=== PATIENT | male | born 1945 | race Caucasian/White ===

== ENCOUNTER 2020-07-08 12:07 | Emergency (ER) | payer MEDICARE ==
[2020-07-08] MEDS ORDERED: Sodium Chloride 0.9% 2.5 ML Syringe FLUSH PRN (12:14)
[2020-07-08] MEDS ORDERED: Sodium Chloride 0.9% 10 ML Syringe FLUSH PRN (12:14)
--- NOTE | 2020-07-08 12:16 | EDM.PDOC ---
<Jase Winston - Last Filed: 07/08/20 15:31> ED HPI GENERAL MEDICAL PROBLEM - General Chief Complaint: Respiratory Problem Stated Complaint: EMS ARRIVAL Time Seen by Provider: 07/08/20 12:10 - Related Data Allergies Allergy/AdvReac Type Severity Reaction Status Date / Time metformin Allergy Cannot Verified 07/08/20 12:23 Remember Sulfa (Sulfonamide Allergy Cannot Verified 07/08/20 12:23 Antibiotics) Remember Home Meds: Home Meds Albuterol Sulfate [Proair Respiclick] 90 mcg INH ASDIRECTED 07/08/20 [History] DULoxetine HCl [Duloxetine HCl] 20 mg PO TID 07/08/20 [History] Ferrous Sulfate 325 mg PO DAILY 07/08/20 [History] Fludrocortisone Acetate 0.1 mg PO DAILY 07/08/20 [History] Fluticasone Propion/Salmeterol [Fluticasone-Salmeterol 250-50] 1 puff INH Q12H 07/08/20 [History] Insulin Aspart [Insulin Aspart Flexpen] 8 units INJECT BID 07/08/20 [History] Insulin Glarg,Human.Rec.Analog [Lantus Solostar] 50 units INJECT ACBREAKFAST 07/08/20 [History] Montelukast [Singulair] 10 mg PO BEDTIME 07/08/20 [History] Pantoprazole [ProTONIX] 40 mg PO DAILY 07/08/20 [History] Pregabalin [Lyrica] 50 mg PO BID 07/08/20 [History] Pyridostigmine [place] 60 mg PO DAILY 07/08/20 [History] Tamsulosin HCl [Flomax] 0.4 mg PO DAILY 07/08/20 [History] Tiotropium [Spiriva HandiHaler] 2.5 mcg INH DAILY 07/08/20 [History] Warfarin [Coumadin] 2.5 mg PO DAILY 07/08/20 [History] predniSONE [Prednisone] 20 mg PO DAILY 07/08/20 [History] #1 Interpretation EKG Interpretation Comments: EKG: Normal sinus rhythm heart rate of [address]-T wave abnormalities Normal axis No evidence of ST elevation [place] As interpreted by ER physician: Tish Departure - Departure Disposition: Home, Self-Care 01 Clinical Impression: COVID-19 - Discharge Information Instructions: COVID-19 Referrals: Elana Yoder MD [Primary Care Provider] - Forms: ED Department Discharge Additional Instructions: The following information is given to patients seen in the emergency department who are being discharged to home. This information is to outline your options for follow-up care. We provide all patients seen in our emergency department with a follow-up referral. The need for follow-up, as well as the timing and circumstances, are variable depending upon the specifics of your emergency department visit. If you don't have a primary care physician on staff, we will provide you with a referral. We always advise you to contact your personal physician following an emergency department visit to inform them of the circumstance of the visit and for follow-up with them and/or the need for any referrals to a consulting specialist. The emergency department will also refer you to a specialist when appropriate. This referral assures that you have the opportunity for follow-up care with a specialist. All of these measure are taken in an effort to provide you with optimal care, which includes your follow-up. Under all circumstances we always encourage you to contact your private physician who remains a resource for coordinating your care. When calling for follow-up care, please make the office aware that this follow-up is from your recent emergency room visit. If for any reason you are refused follow-up, please contact the [facility] Emergency Department at and asked to speak to the emergency department charge nurse. [facility] [address] [place] [id number] [address] Thank you for choosing the [facility] emergency department in [place] for your medical needs today. It was a pleasure caring for you. Today you were seen in the emergency department for COVID- 19. 1. Your COVID-19 screening is positive. That means you do have the coronavirus and you are considered contagious. Your vital signs and oxygen saturation are well enough that you were able to monitor your symptoms at home. Continue to monitor for trouble breathing, new confusion or inability to arouse, bluish lips or face or any of the other symptoms we discussed -if this occurs please return to the emergency room. 2. Please self quarantine over the next 10 days. Inform any persons that you have been in contact with since you started becoming symptomatic that you have tested positive; they should be made aware and take the appropriate steps as ne eded. 3. You can take NyQuil during the evening to help get a restful night sleep. May alternate Tylenol and ibuprofen as needed for pain and fever management. 4. The [facility] department will be calling you and following up with you. The [place] [facility] [employer] Hotline phone number , They are open Monday - Monday 7am - 7pm. Follow up with your primary care provider for re-evaluation and re-testing after the 10 day quarantine and discuss when you should be seen. <Morgan Swartz E - Last Filed: 07/08/20 15:57> ED HPI GENERAL MEDICAL PROBLEM - General Source of Information: Reports: Patient History Limitations: Reports: No Limitations - History of Present Illness INITIAL COMMENTS - FREE TEXT/NARRATIVE: HISTORY AND PHYSICAL: History of present illness: Patient is a 74-year-old male who presents to the emergency room via EMS with complaints of fatigue, weakness and shortness of breath. Patient reports he has COPD, asthma and MS. He is a poor historian, unable to tell me how long symptoms have been going on or which medications he takes. Patient denies any fever, chills, headache, change in vision, syncope or near syncope. Denies any chest pain, back pain, abdominal pain, nausea, vomiting, diarrhea, constipation or dysuria. Has not noted any blood in urine or stool. Patient has been eating and drinking appropriately. Review of systems: As per history of present illness and below otherwise all systems reviewed and negative. Past medical history: As per history of present illness and as reviewed below otherwise noncontributory. Surgical history: As per history of present illness and as reviewed below otherwise non contributory. Social history: See social history for further information Family history: As per history of present illness and as reviewed below otherwise noncontributory. Physical exam: General: Well developed and well nourished 74 year old male. Alert and orientated x 3. Mildly ill appearing but in no acute distress. Vital signs are stable and have been reviewed by me. Nursing notes were reviewed. Attempted to get more health history from [facility] (poor historian). HEENT: Atraumatic, normocephalic, pupils equal and reactive bilaterally, negative for conjunctival pallor or scleral icterus, mucous membranes dry, TMs normal bilaterally, throat clear, neck supple, nontender, trachea midline. No drooling or trismus noted. No meningeal signs. No hot potato voice noted. Lungs: Clear to auscultation, breath sounds equal bilaterally, chest nontender. Normal work of breathing, no accessory muscles used. Heart: S1S2, regular rate and rhythm without overt murmur Abdomen: Soft, nondistended, nontender. Negative for masses or hepatosplenomegaly. Negative for costovertebral tenderness. Pelvis: Stable nontender. Skin: Intact, warm, dry. No lesions or rashes noted. Hematologic: No petechiae or purpra. Mucosa appropriate color and normal nail bed color and refill. Extremities: Atraumatic, moves all extremities per self without difficulty or deficits, negative for cords or calf pain. No lower extremity edema noted. Neurovascular unremarkable. Neuro: Awake, alert, oriented. Cranial nerves II through XII unremarkable. Cerebellum unremarkable. Motor and sensory unremarkable throughout. Exam nonfocal. Psychiatric: Mood and affect are appropriate. Normal thought process. Answering questions appropriately. Notes: Cardiomegaly without further evidence of heart failure or other acute a bnormality. Lab work is unremarkable with the exception of testing positive for COVID-19. I did offer admission due to his comorbidities. He adamantly declines wanting to be admitted stating he needs to go home. He is vitally stable. I have spoken with the patient/caregiver and discussed today's findings, in addition to providing specific details for plan of care. The patient is stable for discharge, counseling was provided and we discussed in great detail signs and symptoms that would prompt them to return to the Emergency Department. Medication, follow up and supportive care measures were reviewed and discussed. Voices understanding and is agreeable to plan of care. Denies any further questions or concerns at this time. Diagnostics: CBC, CMP, D.Dimer, EKG, Troponin, CXR, BNP Therapeutics: NS Prescription: None Impression: COVID-19 Plan: 1. Your COVID-19 screening is positive. That means you do have the coronavirus and you are considered contagious. Your vital signs and oxygen saturation are well enough that you were able to monitor your symptoms at home. Continue to monitor for trouble breathing, new confusion or inability to arouse, bluish lips or face or any of the other symptoms we discussed -if this occurs please return to the emergency room. 2. Please self quarantine over the next 10 days. Inform any persons that you have been in contact with since you started becoming symptomatic that you have tested positive; they should be made aware and take the appropriate steps as needed. 3. You can take NyQuil during the evening to help get a restful night sleep. May alternate Tylenol and ibuprofen as needed for pain and fever management. 4. The [facility] department will be calling you and following up with you. The [place] COVID 19 Hotline phone number , They are open Monday - Monday 7am - 7pm. Follow up with your primary care provider for re-evaluation and re-testing after the 10 day quarantine and discuss when you should be seen. Definitive disposition and diagnosis as appropriate pending reevaluation and review of above. Entire Body Pain Score (Numeric/FACES): 8 ED ROS GENERAL - Review of Systems Review Of Systems: Comprehensive ROS is negative, except as noted in HPI. ED EXAM, GENERAL - Physical Exam Exam: See Below (See dictation) Course - Vital Signs Last Recorded V/S: Last Vital Signs Temp 96.8 F L 07/08/20 12:15 Pulse 67 07/08/20 12:15 Resp 17 07/08/20 12:15 BP 136/84 07/08/20 12:15 Pulse Ox 95 07/08/20 12:15 - Orders/Labs/Meds Orders: Active Orders 24 hr Category Date Time Status EKG Documentation Completion [RC] STAT Care 07/08/20 12:14 Active B-TYPE NATRIURETIC PEPTIDE,BNP [CHEM] Stat Lab 07/08/20 13:09 Received Sodium Chloride 0.9% [Saline Flush] Med 07/08/20 12:14 Active 10 ml FLUSH ASDIRECTED PRN Sodium Chloride 0.9% [Saline Flush] Med 07/08/20 12:14 Active 2.5 ml FLUSH ASDIRECTED PRN Saline Lock Insert [OM.PC] Stat Oth 07/08/20 12:14 Ordered Medication Orders Sodium Chloride (Saline Flush) 10 ml FLUSH ASDIRECTED PRN PRN Reason: Keep Vein Open Sodium Chloride (Saline Flush) 2.5 ml FLUSH ASDIRECTED PRN PRN Reason: Keep Vein Open Labs: Laboratory Tests 07/08/20 07/08/20 07/08/20 Range/Units 13:09 13:09 13:09 WBC 5.32 (4.0-11.0) K/uL RBC 5.42 (4.50-5.90) M/uL Hgb 13.4 (13.0-17.0) g/dL Hct 43.7 (38.0-50.0) % MCV 80.6 (80.0-98.0) fL MCH 24.7 L (27.0-32.0) pg MCHC 30.7 L (31.0-37.0) g/dL RDW Std Deviation 62.8 H (28.0-62.0) fl RDW Coeff of [place] 21 H (11.0-15.0) % Plt Count 129 L (150-400) K/uL Neut % (Auto) 68.0 (48.0-80.0) % Lymph % (Auto) 23.5 (16.0-40.0) % [place] % (Auto) 6.2 (0.0-15.0) % Eos % (Auto) 2.1 (0.0-7.0) % Baso % (Auto) 0.2 (0.0-1.5) % Neut # (Auto) 3.6 (1.4-5.7) K/uL Lymph # (Auto) 1.3 (0.6-2.4) K/uL [place] # (Auto) 0.3 (0.0-0.8) K/uL Eos # (Auto) 0.1 (0.0-0.7) K/uL Baso # (Auto) 0.0 (0.0-0.1) K/uL Nucleated RBC % 0.9 /100WBC Nucleated RBCs # 0 K/uL INR D-Dimer, Quantitative 0.23 (0.0-0.50) mg/L FEU Lactate (0.20-2.00) mmol/L Sodium 134 L (136-148) mmol/L Potassium 4.1 (3.5-5.1) mmol/L Chloride 101 (98-107) mmol/L Carbon Dioxide 26.9 (21.0-32.0) mmol/L BUN 21 H (7.0-18.0) mg/dL Creatinine 1.1 (0.8-1.3) mg/dL Est Cr Clr Drug Dosing 69.54 mL/min Estimated GFR (MDRD) > 60.0 ml/min Glucose 120 H (74-106) mg/dL Calcium 8.0 L (8.5-10.1) mg/dL Total Bilirubin 0.9 (0.2-1.0) mg/dL AST 30 (15-37) IU/L ALT 19 (14-63) IU/L Alkaline Phosphatase 78 (46-116) U/L Troponin I < 0.050 (0.000-0.056) ng/mL Total Protein 6.2 L (6.4-8.2) g/dL Albumin 2.5 L (3.4-5.0) g/dL Globulin 3.7 (2.6-4.0) g/dL Albumin/Globulin Ratio 0.7 L (0.9-1.6) SARS-CoV-2 RNA (QUANG) (NEGATIVE) 07/08/20 07/08/20 07/08/20 Range/Units 13:09 13:09 13:45 WBC (4.0-11.0) K/uL RBC (4.50-5.90) M/uL Hgb (13.0-17.0) g/dL Hct (38.0-50.0) % MCV (80.0-98.0) fL MCH (27.0-32.0) pg MCHC (31.0-37.0) g/dL RDW Std Deviation (28.0-62.0) fl RDW Coeff of [place] (11.0-15.0) % Plt Count (150-400) K/uL Neut % (Auto) (48.0-80.0) % Lymph % (Auto) (16.0-40.0) % [place] % (Auto) (0.0-15.0) % Eos % (Auto) (0.0-7.0) % Baso % (Auto) (0.0-1.5) % Neut # (Auto) (1.4-5.7) K/uL Lymph # (Auto) (0.6-2.4) K/uL [place] # (Auto) (0.0-0.8) K/uL Eos # (Auto) (0.0-0.7) K/uL Baso # (Auto) (0.0-0.1) K/uL Nucleated RBC % /100WBC Nucleated RBCs # K/uL INR 1.80 D-Dimer, Quantitative (0.0-0.50) mg/L FEU Lactate 1.1 (0.20-2.00) mmol/L Sodium (136-148) mmol/L Potassium (3.5-5.1) mmol/L Chloride (98-107) mmol/L Carbon Dioxide (21.0-32.0) mmol/L BUN (7.0-18.0) mg/dL Creatinine (0.8-1.3) mg/dL Est Cr Clr Drug Dosing mL/min Estimated GFR (MDRD) ml/min Glucose (74-106) mg/dL Calcium (8.5-10.1) mg/dL Total Bilirubin (0.2-1.0) mg/dL AST (15-37) IU/L ALT (14-63) IU/L Alkaline Phosphatase (46-116) U/L Troponin I (0.000-0.056) ng/mL Total Protein (6.4-8.2) g/dL Albumin (3.4-5.0) g/dL Globulin (2.6-4.0) g/dL Albumin/Globulin Ratio (0.9-1.6) SARS-CoV-2 RNA (QUANG) POSITIVE H (NEGATIVE) Meds: Medications Generic Name Dose Route Start Last Admin Trade Name Freq PRN Reason Stop Dose Admin Sodium Chloride 10 ml 07/08/20 12:14 Saline Flush FLUSH ASDIRECTED PRN Keep Vein Open Sodium Chloride 2.5 ml 07/08/20 12:14 Saline Flush FLUSH ASDIRECTED PRN Keep Vein Open Departure - Departure Time of Disposition: 14:57 Sepsis Event Note (ED) - Focused Exam Vital Signs: Vital Signs Temp Pulse Resp BP Pulse Ox 07/08/20 12:15 96.8 F L 67 17 136/84 95 - My Orders Last 24 Hours: My Active Orders 07/08/20 12:14 EKG Documentation Completion [RC] STAT Sodium Chloride 0.9% [Saline Flush] 10 ml FLUSH ASDIRECTED PRN Sodium Chloride 0.9% [Saline Flush] 2.5 ml FLUSH ASDIRECTED PRN Saline Lock Insert [OM.PC] Stat 07/08/20 13:09 B-TYPE NATRIURETIC PEPTIDE,BNP [CHEM] Stat - Assessment/Plan Last 24 Hours: My Active Orders 07/08/20 12:14 EKG Documentation Completion [RC] STAT Sodium Chloride 0.9% [Saline Flush] 10 ml FLUSH ASDIRECTED PRN Sodium Chloride 0.9% [Saline Flush] 2.5 ml FLUSH ASDIRECTED PRN Saline Lock Insert [OM.PC] Stat 07/08/20 13:09 B-TYPE NATRIURETIC PEPTIDE,BNP [CHEM] Stat
--- NOTE | 2020-07-08 13:31 | CR ---
INDICATION: Shortness of breath TECHNIQUE: Chest 1 view COMPARISON: None FINDINGS: Cardiovascular and mediastinum: Heart is enlarged. Pulmonary vasculature is normal. Wire less pacemaker device is present. Lungs and pleural spaces: Lungs are clear. No sign of infiltrate or mass. No sign of pleural effusion. No pneumothorax. Bones and soft tissues: No significant findings. IMPRESSION: Cardiomegaly without further evidence of heart failure or other acute abnormality. Dictated by Sven Bueno MD @ Jul 08 2020 1:29PM Signed by Dr. Sven Bueno @ Jul 08 2020 1:30PM
[2020-07-08 13:58] LABS: BLOOD UREA NITROGEN,BUN 21 mg/dL (7.0-18.0); CARBON DIOXIDE,CO2 26.9 mmol/L (21.0-32.0); CHLORIDE,CL 101 mmol/L (98-107); GLUCOSE RANDOM 120 mg/dL (74-106); POTASSIUM,K 4.1 mmol/L (3.5-5.1); SODIUM,NA 134 mmol/L (136-148)
== END 2020-07-08 15:55 | disposition home or self-care (01) ==
LOC: MW.ED 12:07
DX: U07.1 COVID-19 (principal); Z88.8 Allergy status to other drugs, medicaments and biological substances; Z88.2 Allergy status to sulfonamides; Z79.4 Long term (current) use of insulin; Z79.01 Long term (current) use of anticoagulants; Z79.899 Other long term (current) drug therapy
CPT/HCPCS: 36415; 71045; 80053; 83605; 83880; 84484; 85025; 85379; 85610; 93005; 99285; U0002

== ENCOUNTER 2020-07-11 10:56 | Inpatient (IN) | payer MEDICARE, OTHER ==
[2020-07-11] MEDS ORDERED: Sodium Chloride 0.9% 10 ML Syringe FLUSH PRN (11:00)
[2020-07-11] MEDS ORDERED: Sodium Chloride 0.9% 2.5 ML Syringe FLUSH PRN (11:00)
--- NOTE | 2020-07-11 11:14 | EDM.PDOC ---
ED HPI GENERAL MEDICAL PROBLEM - General Chief Complaint: Respiratory Problem Stated Complaint: COVID Time Seen by Provider: 07/11/20 10:57 Source of Information: Reports: Patient, EMS History Limitations: Reports: No Limitations - History of Present Illness INITIAL COMMENTS - FREE TEXT/NARRATIVE: History of present illness: [Patient is 74-year-old male who was diagnosed positive with Covid 3 days ago and he presented by EMS today with body aches, fatigue, shortness of breath. EMS reports that he was 88% on room air. They put him on 4 L of oxygen by nasal cannula to bump him up to the high 90s. He denies chest pain. Denies blurry vision or headache. Denies vomiting and diarrhea. Has history of type 2 diabetes, MS, and other neurological issues that he cannot recall.] Review of systems: As per history of present illness and below otherwise all systems reviewed and negative. Past medical history: As per history of present illness and as reviewed below otherwise noncontributory. Surgical history: As per history of present illness and as reviewed below otherwise noncontributory. Social history: No reported history of drug or alcohol abuse. Family history: As per history of present illness and as reviewed below otherwise noncontributory. Physical exam: General: Awake, alert, no acute distress, A&O X3. HEENT: Atraumatic, normocephalic, pupils reactive, negative for conjunctival pallor or scleral icterus, mask on, neck supple, nontender, trachea midline. Lungs: tachypneic, scattered expiratory wheezes, otherwise Clear to auscultation. Heart: RRR, normal S1S2, no JVD. Abdomen: Soft, nondistended, nontender. Negative for masses or hepatosplenomegaly. Pelvis: Stable nontender. Genitourinary: Deferred. Rectal: Deferred. Extremities: Atraumatic, no edema, Neurovascular unremarkable. Neuro: Motor and sensory grossly intact throughout. Exam nonfocal. Diagnostics: [] Therapeutics: [] Impression: [] Plan: [] Definitive disposition and diagnosis as appropriate pending reevaluation and review of above. - Related Data Allergies Allergy/AdvReac Type Severity Reaction Status Date / Time metformin Allergy Cannot Verified 07/11/20 11:06 Remember Sulfa (Sulfonamide Allergy Cannot Verified 07/11/20 11:06 Antibiotics) Remember Home Meds: Home Meds Albuterol Sulfate [Proair Respiclick] 90 mcg INH ASDIRECTED 07/08/20 [History] DULoxetine HCl [Duloxetine HCl] 20 mg PO TID 07/08/20 [History] Ferrous Sulfate 325 mg PO DAILY 07/08/20 [History] Fludrocortisone Acetate 0.1 mg PO DAILY 07/08/20 [History] Fluticasone Propion/Salmeterol [Fluticasone-Salmeterol 250-50] 1 puff INH Q12H 07/08/20 [History] Insulin Aspart [Insulin Aspart Flexpen] 8 units INJECT BID 07/08/20 [History] Insulin Glarg,Human.Rec.Analog [Lantus Solostar] 50 units INJECT ACBREAKFAST 07/08/20 [History] Montelukast [Singulair] 10 mg PO BEDTIME 07/08/20 [History] Pantoprazole [ProTONIX] 40 mg PO DAILY 07/08/20 [History] Pregabalin [Lyrica] 50 mg PO BID 07/08/20 [History] Pyridostigmine Garretson 120 mg PO Q6HR 07/08/20 [History] Tamsulosin HCl [Flomax] 0.4 mg PO DAILY 07/08/20 [History] Tiotropium [Spiriva HandiHaler] 2.5 mcg INH DAILY 07/08/20 [History] Warfarin [Coumadin] 2.5 mg PO DAILY 07/08/20 [History] predniSONE [Prednisone] 20 mg PO DAILY 07/08/20 [History] Past Medical History - Past Surgical History Other HEENT Surgeries/Procedures: unable to obtain Other Cardiovascular Surgeries/Procedures: unable to obtain Other Respiratory Surgeries/Procedures: unable to obtain Other GI Surgeries/Procedures: unable to obtain Other Male Surgeries/Procedures: unable to obtain Other Endocrine Surgeries/Procedures: unable to obtain Other Neurological Surgeries/Procedures: Unable to obtain Other Musculoskeletal Surgeries/Procedures:: unable to obtain Social & Family History - Caffeine Use Caffeine Use: Reports: None ED ROS GENERAL - Review of Systems Review Of Systems: Comprehensive ROS is negative, except as noted in HPI. ED EXAM, GENERAL - Physical Exam Exam: See Below (see h and p) #1 Interpretation EKG Date: 07/11/20 Time: 11:26 Rhythm: NSR Rate (Beats/Min): 82 [place]: Normal P-Wave: Present QRS: LBBB ST-T: Normal QT: Normal Comparison: No Change (- for comparison) Course - Vital Signs Text/Narrative:: Patient is requiring supplemental oxygen for his hypoxia. He has been stable while on the nasal cannula O2. Remainder of the work-up is reassuring. He is agreeable with plan for admission and further work-up and evaluation. Last Recorded V/S: Last Vital Signs Temp 36.4 C 07/12/20 08:00 Pulse 60 07/12/20 08:00 Resp 20 07/12/20 08:00 BP 180/80 H 07/12/20 08:00 Pulse Ox 97 07/12/20 08:00 - Orders/Labs/Meds Orders: Active Orders 24 hr Category Date Time Status Sodium Chloride 0.9% [Saline Flush] Med 07/11/20 11:00 Active 10 ml FLUSH ASDIRECTED PRN Sodium Chloride 0.9% [Saline Flush] Med 07/11/20 11:00 Active 2.5 ml FLUSH ASDIRECTED PRN Saline Lock Insert [OM.PC] Stat Oth 07/11/20 11:00 Ordered Medication Orders Acetaminophen (Tylenol) 650 mg PO Q4H PRN PRN Reason: Pain (Mild 1-3)/fever Albuterol/Ipratropium (Combivent Respimat) 0 gm INH Q6H [facility] Last Admin: 07/12/20 06:18 Dose: 1 puff Documented by: Admin: 07/11/20 23:43 Dose: 1 puff Documented by: Admin: 07/11/20 17:35 Dose: 1 cartridge Documented by: ALESSANDRO Dexamethasone (Dexamethasone) 6 mg PO DAILY [facility] Last Admin: 07/12/20 10:05 Dose: 6 mg Documented by: GRZEGORZ Dextrose/Water (Dextrose 50% In Water) 50 ml IV ASDIRECTED PRN PRN Reason: Hypoglycemia Enoxaparin Sodium (Lovenox) 40 mg SUBCUT Q24H [facility] Last Admin: 07/11/20 18:12 Dose: 40 mg Documented by: ALYSSA Ferrous Sulfate (Ferrous Sulfate) 325 mg PO DAILY [facility] Last Admin: 07/12/20 10:05 Dose: 325 mg Documented by: GRZEGORZ Fludrocortisone Acetate (Florinef) 0.1 mg PO DAILY [facility] Last Admin: 07/12/20 10:06 Dose: 0.1 mg Documented by: GRZEGORZ Glucagon (Glucagen) 1 mg IM ASDIRECTED PRN PRN Reason: Hypoglycemia Remdesivir 100 mg/ Sodium (Chloride) 100 mls @ 100 mls/hr IV Q24H [facility] Stop: 07/15/20 14:59 Pantoprazole Sodium 40 mg/ (Sodium Chloride) 10 mls @ 300 mls/hr IV DAILY [facility] Last Admin: 07/12/20 10:06 Dose: 300 mls/hr Documented by: Infusion: 07/11/20 18:15 Dose: 300 mls/hr Documented by: Admin: 07/11/20 18:13 Dose: 300 mls/hr Documented by: ALYSSA Insulin Aspart (Novolog) 0 unit SUBCUT TIDAC [facility]; Protocol Last Admin: 07/11/20 18:22 Dose: 8 unit Documented by: ALYSSA Insulin Glargine (Lantus Solostar) 50 units SUBCUT ACBREAKFAST [facility] Montelukast Sodium (Singulair) 10 mg PO BEDTIME [facility] Last Admin: 07/11/20 20:55 Dose: 10 mg Documented by: BELKYS Duloxetine Hcl 20 Mg 1 each PO TID [facility] Pyridostigmine (Garretson 60 Mg) 1 each PO DAILY [facility] Tiotropium [Spiriva Respimat] 2.5 Mcg/Actuation 2 each INH DAILY [facility] Pregabalin (Lyrica) 50 mg PO BID [facility] Last Admin: 07/12/20 10:06 Dose: 50 mg Documented by: Admin: 07/11/20 20:55 Dose: 50 mg Documented by: BELKYS Fluticasone/Salmeterol (Advair Diskus 250-50) 0 puff INH Q12H [facility] Last Admin: 07/11/20 19:32 Dose: Not Given Documented by: ALYSSA Sodium Chloride (Saline Flush) 10 ml FLUSH ASDIRECTED PRN PRN Reason: Keep Vein Open Last Admin: 07/11/20 12:42 Dose: 10 ml Documented by: DEB Sodium Chloride (Saline Flush) 2.5 ml FLUSH ASDIRECTED PRN PRN Reason: Keep Vein Open Last Admin: 07/11/20 12:42 Dose: 2.5 ml Documented by: DEB Tamsulosin HCl (Flomax) 0.4 mg PO DAILY [facility] Last Admin: 07/12/20 10:05 Dose: 0.4 mg Documented by: GRZEGORZ Warfarin Sodium (Coumadin Ask) 1 each PO DAILY@1400 JUANITA Warfarin Sodium (Coumadin) 2.5 mg PO DAILY@1400 ONE Stop: 07/12/20 14:01 Labs: Laboratory Tests 07/11/20 07/11/20 07/11/20 Range/Units 11:05 11:05 11:05 WBC 4.93 (4.0-11.0) K/uL RBC 5.55 (4.50-5.90) M/uL Hgb 13.6 (13.0-17.0) g/dL Hct 44.3 (38.0-50.0) % MCV 79.8 L (80.0-98.0) fL MCH 24.5 L (27.0-32.0) pg MCHC 30.7 L (31.0-37.0) g/dL RDW Std Deviation 60.0 (28.0-62.0) fl RDW Coeff of Feliciano 21 H (11.0-15.0) % Plt Count 162 (150-400) K/uL MPV 10.60 (7.40-12.00) fL Neut % (Auto) 63.1 (48.0-80.0) % Lymph % (Auto) 27.0 (16.0-40.0) % [place] % (Auto) 8.7 (0.0-15.0) % Eos % (Auto) 1.2 (0.0-7.0) % Baso % (Auto) 0.0 (0.0-1.5) % Neut # (Auto) 3.1 (1.4-5.7) K/uL Lymph # (Auto) 1.3 (0.6-2.4) K/uL [place] # (Auto) 0.4 (0.0-0.8) K/uL Eos # (Auto) 0.1 (0.0-0.7) K/uL Baso # (Auto) 0.0 (0.0-0.1) K/uL Nucleated RBC % 0.0 /100WBC Nucleated RBCs # 0 K/uL INR APTT (18.6-31.3) SEC Sodium 135 L (136-148) mmol/L Potassium 3.7 (3.5-5.1) mmol/L Chloride 100 (98-107) mmol/L Carbon Dioxide 27.0 (21.0-32.0) mmol/L BUN 18 (7.0-18.0) mg/dL Creatinine 1.3 (0.8-1.3) mg/dL Est Cr Clr Drug Dosing 58.84 mL/min Estimated GFR (MDRD) 54.1 ml/min Glucose 227 H (74-106) mg/dL Calcium 8.0 L (8.5-10.1) mg/dL Total Bilirubin 1.2 H (0.2-1.0) mg/dL AST 38 H (15-37) IU/L ALT 27 (14-63) IU/L Alkaline Phosphatase 85 (46-116) U/L Troponin I < 0.050 (0.000-0.056) ng/mL B-Natriuretic Peptide 83 (<100) PG/ML Total Protein 6.6 (6.4-8.2) g/dL Albumin 2.5 L (3.4-5.0) g/dL Globulin 4.1 H (2.6-4.0) g/dL Albumin/Globulin Ratio 0.6 L (0.9-1.6) 07/11/20 Range/Units 11:05 WBC (4.0-11.0) K/uL RBC (4.50-5.90) M/uL Hgb (13.0-17.0) g/dL Hct (38.0-50.0) % MCV (80.0-98.0) fL MCH (27.0-32.0) pg MCHC (31.0-37.0) g/dL RDW Std Deviation (28.0-62.0) fl RDW Coeff of Feliciano (11.0-15.0) % Plt Count (150-400) K/uL MPV (7.40-12.00) fL Neut % (Auto) (48.0-80.0) % Lymph % (Auto) (16.0-40.0) % [place] % (Auto) (0.0-15.0) % Eos % (Auto) (0.0-7.0) % Baso % (Auto) (0.0-1.5) % Neut # (Auto) (1.4-5.7) K/uL Lymph # (Auto) (0.6-2.4) K/uL [place] # (Auto) (0.0-0.8) K/uL Eos # (Auto) (0.0-0.7) K/uL Baso # (Auto) (0.0-0.1) K/uL Nucleated RBC % /100WBC Nucleated RBCs # K/uL INR 1.39 APTT 39.5 H (18.6-31.3) SEC Sodium (136-148) mmol/L Potassium (3.5-5.1) mmol/L Chloride (98-107) mmol/L Carbon Dioxide (21.0-32.0) mmol/L BUN (7.0-18.0) mg/dL Creatinine (0.8-1.3) mg/dL Est Cr Clr Drug Dosing mL/min Estimated GFR (MDRD) ml/min Glucose (74-106) mg/dL Calcium (8.5-10.1) mg/dL Total Bilirubin (0.2-1.0) mg/dL AST (15-37) IU/L ALT (14-63) IU/L Alkaline Phosphatase (46-116) U/L Troponin I (0.000-0.056) ng/mL B-Natriuretic Peptide (<100) PG/ML Total Protein (6.4-8.2) g/dL Albumin (3.4-5.0) g/dL Globulin (2.6-4.0) g/dL Albumin/Globulin Ratio (0.9-1.6) Meds: Medications Generic Name Dose Route Start Last Admin Trade Name Freq PRN Reason Stop Dose Admin Acetaminophen 650 mg 07/11/20 15:07 Tylenol PO Q4H PRN Pain (Mild 1-3)/fever Albuterol/Ipratropium 0 gm 07/11/20 18:00 07/12/20 06:18 Combivent Respimat INH 1 puff Q6H JUANITA Administration Dexamethasone 6 mg 07/12/20 09:00 07/12/20 10:05 Dexamethasone PO 6 mg DAILY JUANITA Administration Dextrose/Water 50 ml 07/11/20 15:08 Dextrose 50% In Water IV ASDIRECTED PRN Hypoglycemia Enoxaparin Sodium 40 mg 07/11/20 16:00 07/11/20 18:12 Lovenox SUBCUT 40 mg Q24H JUANITA Administration Ferrous Sulfate 325 mg 07/12/20 09:00 07/12/20 10:05 Ferrous Sulfate PO 325 mg DAILY JUANITA Administration Fludrocortisone Acetate 0.1 mg 07/12/20 09:00 07/12/20 10:06 Florinef PO 0.1 mg DAILY JUANITA Administration Glucagon 1 mg 07/11/20 15:08 Glucagen IM ASDIRECTED PRN Hypoglycemia Remdesivir 100 mg/ Sodium 100 mls @ 100 mls/hr 07/12/20 14:00 Chloride IV 07/15/20 14:59 Q24H JUANITA Pantoprazole Sodium 40 mg/ 10 mls @ 300 mls/hr 07/11/20 16:00 07/12/20 10:06 Sodium Chloride IV 300 mls/hr DAILY JUANITA Administration Insulin Aspart 0 unit 07/11/20 17:00 07/11/20 18:22 Novolog SUBCUT 8 unit TIDAC [facility] Administration Protocol Insulin Glargine 50 units 07/12/20 07:30 Lantus Solostar SUBCUT ACBREAKFAST [facility] Montelukast Sodium 10 mg 07/11/20 21:00 07/11/20 20:55 Singulair PO 10 mg BEDTIME JUANITA Administration Duloxetine Hcl 20 Mg 1 each 07/11/20 22:00 PO TID [facility] Pyridostigmine 1 each 07/12/20 09:00 Garretson 60 Mg PO DAILY [facility] Tiotropium [Spiriva 2 each 07/12/20 09:00 Respimat] 2.5 Mcg/ INH Actuation DAILY [facility] Pregabalin 50 mg 07/11/20 21:00 07/12/20 10:06 Lyrica PO 50 mg BID JUANITA Administration Fluticasone/Salmeterol 0 puff 07/11/20 18:00 07/11/20 19:32 Advair Diskus 250-50 INH Not Given Q12H [facility] Sodium Chloride 10 ml 07/11/20 11:00 07/11/20 12:42 Saline Flush FLUSH 10 ml ASDIRECTED PRN Administration Keep Vein Open Sodium Chloride 2.5 ml 07/11/20 11:00 07/11/20 12:42 Saline Flush FLUSH 2.5 ml ASDIRECTED PRN Administration Keep Vein Open Tamsulosin HCl 0.4 mg 07/12/20 09:00 07/12/20 10:05 Flomax PO 0.4 mg DAILY JUANITA Administration Warfarin Sodium 1 each 07/12/20 14:00 Coumadin Ask PO DAILY@1400 JUANITA Warfarin Sodium 2.5 mg 07/12/20 14:00 Coumadin PO 07/12/20 14:01 DAILY@1400 ONE Discontinued Medications Generic Name Dose Route Start Last Admin Trade Name Freq PRN Reason Stop Dose Admin Dexamethasone Confirm 07/11/20 12:38 07/11/20 12:49 Dexamethasone Administered 07/11/20 12:39 Not Given Dose 8 mg .ROUTE .STK-MED ONE Dexamethasone 6 mg 07/11/20 12:43 07/11/20 12:44 Dexamethasone PO 07/11/20 12:44 6 mg ONETIME ONE Administration Sodium Chloride 1,000 mls @ 999 mls/hr 07/11/20 11:36 07/11/20 12:42 Normal Saline IV 07/11/20 12:36 999 mls/hr .Bolus ONE Administration Remdesivir 200 mg/ Sodium 250 mls @ 250 mls/hr 07/11/20 12:24 07/11/20 14:28 Chloride IV 07/11/20 12:25 250 mls/hr ONETIME ONE Administration Remdesivir 200 mg/ Sodium 250 mls @ 250 mls/hr 07/11/20 13:00 07/11/20 16:50 Chloride IV 07/11/20 13:59 Not Given ONETIME ONE Ondansetron HCl 4 mg 07/11/20 15:07 Zofran IVPUSH Q4H PRN Nausea Warfarin Sodium 5 mg 07/11/20 18:00 07/11/20 18:13 Coumadin PO 07/11/20 18:01 5 mg ONETIME ONE Administration Departure - Departure Time of Disposition: 12:27 Disposition: Admitted As Inpatient 67 Condition: Fair Clinical Impression: COVID-19, Hypoxia - Discharge Information Sepsis Event Note (ED) - Evaluation Sepsis Screening Result: No Definite Risk - My Orders Last 24 Hours: My Active Orders 07/11/20 11:00 Sodium Chloride 0.9% [Saline Flush] 10 ml FLUSH ASDIRECTED PRN Sodium Chloride 0.9% [Saline Flush] 2.5 ml FLUSH ASDIRECTED PRN Saline Lock Insert [OM.PC] Stat - Assessment/Plan Last 24 Hours: My Active Orders 07/11/20 11:00 Sodium Chloride 0.9% [Saline Flush] 10 ml FLUSH ASDIRECTED PRN Sodium Chloride 0.9% [Saline Flush] 2.5 ml FLUSH ASDIRECTED PRN Saline Lock Insert [OM.PC] Stat
[2020-07-11] MEDS ORDERED: Sodium Chloride 0.9% 1,000 ML IV ONE (11:36)
[2020-07-11 11:40] LABS: BLOOD UREA NITROGEN,BUN 18 mg/dL (7.0-18.0); CHLORIDE,CL 100 mmol/L (98-107); GLUCOSE RANDOM 227 mg/dL (74-106); POTASSIUM,K 3.7 mmol/L (3.5-5.1); SODIUM,NA 135 mmol/L (136-148)
--- NOTE | 2020-07-11 12:12 | CR ---
Indication: Dyspnea, weakness. COVID-19. Technique: Chest one-view portable semi upright. Comparison: 07/08/2020. Findings: Peripherally oriented interstitial opacities have progressed when compared with 07/08/2020, and are consistent with COVID-19 pneumonia. Median sternotomy changes. Implantable director project management. Cardiac valvular prosthesis, potentially an AVR. Lateral costophrenic sulci are sharp. Paucity of abdominal bowel gas. Impression: 1. Peripherally oriented interstitial type opacities, with progression. 2. COVID-19 pneumonia suspected. Dictated by Devin Horne MD @ Jul 11 2020 12:06PM Signed by Dr. Devin Horne @ Jul 11 2020 12:11PM
[2020-07-11] MEDS ORDERED: REMDESIVIR 200 MG in Sodium Chloride 0.9% 250 ML IV ONE ×2 (12:24→13:00)
[2020-07-11] MEDS ORDERED: Dexamethasone 4 MG Tab ONE (12:38)
[2020-07-11] MEDS ORDERED: Dexamethasone 4 MG Tab PO ONE (12:43)
[2020-07-11] MEDS ORDERED: Acetaminophen 325 MG Tab PO PRN (15:07)
[2020-07-11] MEDS ORDERED: Ondansetron 4 MG/2 ML SDV IVPUSH PRN (15:07)
[2020-07-11] MEDS ORDERED: 50% Dextrose in Water 50 ML Syringe IV PRN (15:08)
[2020-07-11] MEDS ORDERED: Glucagon,Human Recombinant 1 MG Vial IM PRN (15:08)
--- NOTE | 2020-07-11 15:13 | PCM.HP.2 ---
H&P History of Present Illness - General Date of Service: 07/11/20 Admit Problem/Dx: Admission Diagnosis/Problem Admission Diagnosis/Problem Dyspnea Source of Information: Patient History Limitations: Reports: No Limitations - History of Present Illness Initial Comments - Free Text/Narative: 74-year-old male presented complaining of fatigue, muscle aches and cough. He has a PMH of DM type II, COPD, a-fib on warfarin, AV valve replacement, MS and myasthenia gravis. Patient reports testing positive for COVID-19 approximately 3 days ago. Patient is a poor historian and does not provide any further history. Per ED records, EMS noted patient's O2 sat was 88% on RA and patient was started on supplemental oxygen. Patient denies any fevers, chills, SOB, chest pain, nausea, vomiting, abdominal pain, diarrhea, blood in stool or blood in urine. In the ER, CBC and CMP unremarkable. CXR showed b/l opacities. Troponin was negative. Patient given 1 L IV NS bolus, dexamethasone 6 mg and IV remdesivir 200 mg. Patient admitted for further evaluation and treatment. - Related Data Allergies/Adverse Reactions: Allergies Allergy/AdvReac Type Severity Reaction Status Date / Time metformin Allergy Cannot Verified 07/11/20 11:06 Remember Sulfa (Sulfonamide Allergy Cannot Verified 07/11/20 11:06 Antibiotics) Remember Home Medications: Home Meds Albuterol Sulfate [Proair Respiclick] 90 mcg INH ASDIRECTED 07/08/20 [History] DULoxetine HCl [Duloxetine HCl] 20 mg PO TID 07/08/20 [History] Ferrous Sulfate 325 mg PO DAILY 07/08/20 [History] Fludrocortisone Acetate 0.1 mg PO DAILY 07/08/20 [History] Fluticasone Propion/Salmeterol [Fluticasone-Salmeterol 250-50] 1 puff INH Q12H 07/08/20 [History] Insulin Aspart [Insulin Aspart Flexpen] 8 units INJECT BID 07/08/20 [History] Insulin Glarg,Human.Rec.Analog [Lantus Solostar] 50 units INJECT ACBREAKFAST 07/08/20 [History] Montelukast [Singulair] 10 mg PO BEDTIME 07/08/20 [History] Pantoprazole [ProTONIX] 40 mg PO DAILY 07/08/20 [History] Pregabalin [Lyrica] 50 mg PO BID 07/08/20 [History] Pyridostigmine Leslie 60 mg PO DAILY 07/08/20 [History] Tamsulosin HCl [Flomax] 0.4 mg PO DAILY 07/08/20 [History] Tiotropium [Spiriva HandiHaler] 2.5 mcg INH DAILY 07/08/20 [History] Warfarin [Coumadin] 2.5 mg PO DAILY 07/08/20 [History] predniSONE [Prednisone] 20 mg PO DAILY 07/08/20 [History] Past Medical History - Infectious Disease History Infectious Disease History: Reports: Novel Coronavirus - Past Surgical History Other HEENT Surgeries/Procedures: unable to obtain Other Cardiovascular Surgeries/Procedures: unable to obtain Other Respiratory Surgeries/Procedures: unable to obtain Other GI Surgeries/Procedures: unable to obtain Other Male Surgeries/Procedures: unable to obtain Other Endocrine Surgeries/Procedures: unable to obtain Other Neurological Surgeries/Procedures: Unable to obtain Other Musculoskeletal Surgeries/Procedures:: unable to obtain Social & Family History - Tobacco Use Tobacco Use Status *Q: Unknown Ever Used Tobacco - Caffeine Use Caffeine Use: Reports: None - Recreational Drug Use Recreational Drug Use: No H&P Review of Systems - Review of Systems: Review Of Systems: Comprehensive ROS is negative, except as noted in HPI. Exam - Exam Exam: See Below - Vital Signs Vital Signs: Last Vital Signs Temp 35.7 C L 07/11/20 11:04 Pulse 81 07/11/20 12:04 Resp 22 H 07/11/20 12:04 BP 140/72 07/11/20 12:04 Pulse Ox 98 07/11/20 12:04 Weight: 111.13 kg - Exam General: Alert, Oriented, Mild Distress HEENT: EOMI, Hearing Intact, Pupils Equal, Pupils Reactive Neck: Supple, Trachea Midline Lungs: Normal Respiratory Effort, Other (rales in bases b/l) Cardiovascular: Regular Rate, Regular Rhythm GI/Abdominal Exam: Normal Bowel Sounds, Soft, Non-Tender, No Distention Extremities: Normal Inspection, No Pedal Edema Peripheral Pulses: 2+: Radial (L), Radial (R) Skin: Warm, Dry, Intact Neurological: Cranial Nerves Intact, Strength Equal Bilateral, Normal Speech, Normal Tone Neuro Extensive - Mental Status: Alert, Oriented x3, Normal Mood/Affect Psychiatric: Alert, Normal Affect, Normal Mood - Patient Data Lab Results Last 24 hrs: Laboratory Results - last 24 hr 07/11/20 07/11/20 07/11/20 Range/Units 11:05 11:05 11:05 WBC 4.93 (4.0-11.0) K/uL RBC 5.55 (4.50-5.90) M/uL Hgb 13.6 (13.0-17.0) g/dL Hct 44.3 (38.0-50.0) % MCV 79.8 L (80.0-98.0) fL MCH 24.5 L (27.0-32.0) pg MCHC 30.7 L (31.0-37.0) g/dL RDW Std Deviation 60.0 (28.0-62.0) fl RDW Coeff of Feliciano 21 H (11.0-15.0) % Plt Count 162 (150-400) K/uL MPV 10.60 (7.40-12.00) fL Neut % (Auto) 63.1 (48.0-80.0) % Lymph % (Auto) 27.0 (16.0-40.0) % [place] % (Auto) 8.7 (0.0-15.0) % Eos % (Auto) 1.2 (0.0-7.0) % Baso % (Auto) 0.0 (0.0-1.5) % Neut # (Auto) 3.1 (1.4-5.7) K/uL Lymph # (Auto) 1.3 (0.6-2.4) K/uL [place] # (Auto) 0.4 (0.0-0.8) K/uL Eos # (Auto) 0.1 (0.0-0.7) K/uL Baso # (Auto) 0.0 (0.0-0.1) K/uL Nucleated RBC % 0.0 /100WBC Nucleated RBCs # 0 K/uL INR APTT (18.6-31.3) SEC Sodium 135 L (136-148) mmol/L Potassium 3.7 (3.5-5.1) mmol/L Chloride 100 (98-107) mmol/L Carbon Dioxide 27.0 (21.0-32.0) mmol/L BUN 18 (7.0-18.0) mg/dL Creatinine 1.3 (0.8-1.3) mg/dL Est Cr Clr Drug Dosing 58.84 mL/min Estimated GFR (MDRD) 54.1 ml/min Glucose 227 H (74-106) mg/dL Calcium 8.0 L (8.5-10.1) mg/dL Total Bilirubin 1.2 H (0.2-1.0) mg/dL AST 38 H (15-37) IU/L ALT 27 (14-63) IU/L Alkaline Phosphatase 85 (46-116) U/L Troponin I < 0.050 (0.000-0.056) ng/mL B-Natriuretic Peptide 83 (<100) PG/ML Total Protein 6.6 (6.4-8.2) g/dL Albumin 2.5 L (3.4-5.0) g/dL Globulin 4.1 H (2.6-4.0) g/dL Albumin/Globulin Ratio 0.6 L (0.9-1.6) 07/11/20 Range/Units 11:05 WBC (4.0-11.0) K/uL RBC (4.50-5.90) M/uL Hgb (13.0-17.0) g/dL Hct (38.0-50.0) % MCV (80.0-98.0) fL MCH (27.0-32.0) pg MCHC (31.0-37.0) g/dL RDW Std Deviation (28.0-62.0) fl RDW Coeff of Feliciano (11.0-15.0) % Plt Count (150-400) K/uL MPV (7.40-12.00) fL Neut % (Auto) (48.0-80.0) % Lymph % (Auto) (16.0-40.0) % [place] % (Auto) (0.0-15.0) % Eos % (Auto) (0.0-7.0) % Baso % (Auto) (0.0-1.5) % Neut # (Auto) (1.4-5.7) K/uL Lymph # (Auto) (0.6-2.4) K/uL [place] # (Auto) (0.0-0.8) K/uL Eos # (Auto) (0.0-0.7) K/uL Baso # (Auto) (0.0-0.1) K/uL Nucleated RBC % /100WBC Nucleated RBCs # K/uL INR 1.39 APTT 39.5 H (18.6-31.3) SEC Sodium (136-148) mmol/L Potassium (3.5-5.1) mmol/L Chloride (98-107) mmol/L Carbon Dioxide (21.0-32.0) mmol/L BUN (7.0-18.0) mg/dL Creatinine (0.8-1.3) mg/dL Est Cr Clr Drug Dosing mL/min Estimated GFR (MDRD) ml/min Glucose (74-106) mg/dL Calcium (8.5-10.1) mg/dL Total Bilirubin (0.2-1.0) mg/dL AST (15-37) IU/L ALT (14-63) IU/L Alkaline Phosphatase (46-116) U/L Troponin I (0.000-0.056) ng/mL B-Natriuretic Peptide (<100) PG/ML Total Protein (6.4-8.2) g/dL Albumin (3.4-5.0) g/dL Globulin (2.6-4.0) g/dL Albumin/Globulin Ratio (0.9-1.6) Result Diagrams: 07/11/20 11:05 07/11/20 11:05 Sepsis Event Note - Evaluation Sepsis Screening Result: No Definite Risk - Focused Exam Vital Signs: Vital Signs Temp Pulse Resp BP Pulse Ox 07/11/20 12:04 81 22 H 140/72 98 07/11/20 11:15 83 24 H 108/66 97 07/11/20 11:04 35.7 C L 82 17 91/65 99 Problem List Initiated/Reviewed/Updated: Yes Orders Last 24hrs: Active Orders 24 hr Category Date Time Status Patient Status [ADT] Routine ADT 07/11/20 12:25 Active Blood Glucose Check, Bedside [RC] TIDAC Care 07/11/20 15:08 Ordered EKG Documentation Completion [RC] STAT Care 07/11/20 11:01 Active Flutter Valve Therapy [RT Chest Physiotherapy] [RC] Care 07/11/20 15:11 Ordered ASDIRECTED Oxygen Therapy [RC] PRN Care 07/11/20 15:07 Ordered RT Incentive Spirometry [RC] ASDIRECTED Care 07/11/20 15:11 Ordered RT Post Treatment Assessment [RC] Click to Edit Care 07/11/20 15:11 Ordered RT Pre-Treatment Assessment [RC] Click to Edit Care 07/11/20 15:11 Ordered Up ad Jyoti [RC] ASDIRECTED Care 07/11/20 15:07 Ordered VTE/DVT Education [RC] PER UNIT ROUTINE Care 07/11/20 15:07 Ordered Vital Signs [RC] Q4H Care 07/11/20 15:07 Ordered [place] Diet [DIET] Diet 07/11/20 Lunch Ordered CBC WITH AUTO DIFF [HEME] AM Lab 07/12/20 05:11 Ordered COMPREHENSIVE METABOLIC PN,CMP [CHEM] AM Lab 07/12/20 05:11 Ordered Acetaminophen [TylenoL] Med 07/11/20 15:07 Ordered 650 mg PO Q4H PRN Albuterol/Ipratropium [Combivent Respimat] Med 07/11/20 18:00 Ordered See Dose Instructions INH Q6H Dextrose 50% in Water Med 07/11/20 15:08 Ordered 50 ml IV ASDIRECTED PRN Enoxaparin [Lovenox] Med 07/11/20 15:15 Ordered 40 mg SUBCUT Q24H Glucagon,Human Recombinant [GlucaGen] Med 07/11/20 15:08 Ordered 1 mg IM ASDIRECTED PRN Insulin Aspart [NovoLOG] Med 07/11/20 17:00 Ordered See Protocol SUBCUT TIDAC Ondansetron [Zofran] Med 07/11/20 15:07 Ordered 4 mg IVPUSH Q4H PRN Pantoprazole [ProTONIX IV] 40 mg Med 07/11/20 15:15 Ordered Sodium Chloride 0.9% [Normal Saline] 10 ml IV DAILY Remdesivir (Eua) [Remdesivir (EUA)] 100 mg Med 07/11/20 15:15 Ordered Sodium Chloride 0.9% [Normal Saline] 100 ml IV Q24H Sodium Chloride 0.9% [Saline Flush] Med 07/11/20 11:00 Active 10 ml FLUSH ASDIRECTED PRN Sodium Chloride 0.9% [Saline Flush] Med 07/11/20 11:00 Active 2.5 ml FLUSH ASDIRECTED PRN dexAMETHasone Med 07/12/20 09:00 Ordered 6 mg PO DAILY Saline Lock Insert [OM.PC] Stat Oth 07/11/20 11:00 Ordered Resuscitation Status Routine Resus Stat 07/11/20 15:07 Ordered Medication Orders Acetaminophen (Tylenol) 650 mg PO Q4H PRN PRN Reason: Pain (Mild 1-3)/fever Albuterol/Ipratropium (Combivent Respimat) 0 gm INH Q6H JUANITA Dexamethasone (Dexamethasone) 6 mg PO DAILY [facility] Dextrose/Water (Dextrose 50% In Water) 50 ml IV ASDIRECTED PRN PRN Reason: Hypoglycemia Enoxaparin Sodium (Lovenox) 40 mg SUBCUT Q24H JUANITA Glucagon (Glucagen) 1 mg IM ASDIRECTED PRN PRN Reason: Hypoglycemia Remdesivir 100 mg/ Sodium (Chloride) 100 mls @ 100 mls/hr IV Q24H JUANITA Stop: 07/15/20 14:59 Pantoprazole Sodium 40 mg/ (Sodium Chloride) 10 mls @ 300 mls/hr IV DAILY [facility] Insulin Aspart (Novolog) 0 unit SUBCUT TIDAC JUANITA; Protocol Ondansetron HCl (Zofran) 4 mg IVPUSH Q4H PRN PRN Reason: Nausea Sodium Chloride (Saline Flush) 10 ml FLUSH ASDIRECTED PRN PRN Reason: Keep Vein Open Last Admin: 07/11/20 12:42 Dose: 10 ml Documented by: DEB Sodium Chloride (Saline Flush) 2.5 ml FLUSH ASDIRECTED PRN PRN Reason: Keep Vein Open Last Admin: 07/11/20 12:42 Dose: 2.5 ml Documented by: DEB Assessment/Plan Comment:: Assessment and Plan: 1. Acute hypoxic respiratory failure secondary to COVID-19: - Admit to med/surg. Will treat with supplemental oxygen prn, dexamethasone 6 mg qd, Remdesivir, PPI and Combivent. - Patient given fact sheet for Remdesivir, risks were explained and consented to treatment. - CXR showed bilateral opacities. 2. Atrial fibrillation, on chronic anticoagulation with subtherapeutic INR: - Patient on warfarin for atrial fibrillation and aortic valve replacement. Will consult pharmacy for warfarin dosing. Will start patient on lovenox 40 mg subcut qd to bridge warfarin until therapeutic. - Patient on telemetry. 3. Diabetes mellitus type II: - Will resume long-acting home insulin, Novolog SSI, ADA diet and accuchecks T IDAC. 4. Past medical history of MS, myasthenia gravis, COPD, asthma, BPH and depression: - Continue home medications.
[2020-07-11] MEDS: Albuterol/Ipratropium 4 GM Inhalation Spray INH SCH ×2 (17:35→23:43)
[2020-07-11] MEDS ORDERED: Warfarin 5 MG Tab PO ONE (18:00)
[2020-07-11] MEDS: Enoxaparin 40 MG/0.4 ML Syringe SUBCUT SCH (18:12)
[2020-07-11] MEDS: Pantoprazole 40 MG in Sodium Chloride 0.9% 10 ML IV SCH (18:13)
[2020-07-11] MEDS: Insulin Aspart 100 Units/ML 3 ML Pen SUBCUT SCH (18:22)
[2020-07-11] MEDS: Fluticasone/Salmeterol 250-50 MCG Inhalation Powder 14/Diskus INH SCH (19:32)
[2020-07-11] MEDS: Pregabalin 50 MG Cap PO SCH (20:55)
[2020-07-11] MEDS: Montelukast 10 MG Tab PO SCH (20:55)
[2020-07-12] MEDS: Albuterol/Ipratropium 4 GM Inhalation Spray INH SCH ×4 (06:18→23:24)
[2020-07-12 07:02] LABS: CARBON DIOXIDE,CO2 25.3 mmol/L (21.0-32.0); POTASSIUM,K 5.1 mmol/L (3.5-5.1)
[2020-07-12] MEDS: Dexamethasone 4 MG Tab PO SCH (10:05)
[2020-07-12] MEDS: Ferrous Sulfate 325 MG Tab PO SCH (10:05)
[2020-07-12] MEDS: Tamsulosin 0.4 MG Cap.ER PO SCH (10:05)
[2020-07-12] MEDS: Pregabalin 50 MG Cap PO SCH ×2 (10:06→20:55)
[2020-07-12] MEDS: Fludrocortisone 0.1 MG Tab PO SCH (10:06)
[2020-07-12] MEDS: Pantoprazole 40 MG in Sodium Chloride 0.9% 10 ML IV SCH (10:06)
[2020-07-12] MEDS: Fluticasone/Salmeterol 250-50 MCG Inhalation Powder 14/Diskus INH SCH ×2 (10:07→19:47)
[2020-07-12] MEDS: TIOTROPIUM INH SCH (11:31)
[2020-07-12] MEDS: Insulin Glargine,Human Rec. Analog 100 Units/ML 3 ML Pen SUBCUT SCH (11:31)
[2020-07-12] MEDS: Insulin Aspart 100 Units/ML 3 ML Pen SUBCUT SCH ×3 (11:34→19:48)
[2020-07-12] MEDS ORDERED: Warfarin 2.5 MG Tab PO ONE (14:00)
--- NOTE | 2020-07-12 14:40 | PCM.PN ---
- General Info Date of Service: 07/12/20 Admission Dx/Problem (Free Text): Admission Diagnosis/Problem Admission Diagnosis/Problem Dyspnea Subjective Update: seen at bedside, drop to 80s on RA, needs 0.5-1 lts, very emotional and tearful, and irritable states his family members are sick. - Review of Systems General: Denies: Fever, Weakness Pulmonary: Reports: Shortness of Breath, Cough. Denies: Pleuritic Chest Pain Cardiovascular: Reports: Dyspnea on Exertion. Denies: Chest Pain, Palpitations, Orthopnea Gastrointestinal: Denies: Abdominal Pain, Constipation, Decreased Appetite Genitourinary: Denies: Dysuria, Frequency, Burning, Pain Musculoskeletal: Denies: Neck Pain, Shoulder Pain Skin: Denies: Cyanosis, Jaundice - Patient Data Vitals - Most Recent: Last Vital Signs Temp 36.3 C 07/12/20 11:38 Pulse 67 07/12/20 11:38 Resp 18 07/12/20 11:38 BP 150/72 H 07/12/20 11:38 Pulse Ox 95 07/12/20 13:10 Weight - Most Recent: 111.13 kg I&O - Last 24 Hours: Intake & Output 07/11/20 07/12/20 07/12/20 22:59 06:59 14:59 Intake Total 300 Output Total 500 Balance -200 Lab Results Last 24 Hours: Laboratory Results - last 24 hr 07/11/20 07/12/20 07/12/20 Range/Units 18:21 06:05 06:05 WBC 1.85 L (4.0-11.0) K/uL RBC 5.35 (4.50-5.90) M/uL Hgb 13.1 (13.0-17.0) g/dL Hct 43.3 (38.0-50.0) % MCV 80.9 (80.0-98.0) fL MCH 24.5 L (27.0-32.0) pg MCHC 30.3 L (31.0-37.0) g/dL RDW Std Deviation 60.8 (28.0-62.0) fl RDW Coeff of Feliciano 20 H (11.0-15.0) % Plt Count 185 (150-400) K/uL MPV 10.90 (7.40-12.00) fL Add Manual Diff YES Neutrophils % (Manual) 64 (48.0-80.0) % Band Neutrophils % 4 % Lymphocytes % (Manual) 24 (16.0-40.0) % Monocytes % (Manual) 8 (0.0-15.0) % Nucleated RBC % 0.0 /100WBC Absolute Seg Neuts 1.2 L (1.4-5.7) Band Neutrophils # 0.1 Lymphocytes # (Manual) 0.4 L (0.6-2.4) Monocytes # (Manual) 0.1 (0.0-0.8) Nucleated RBCs # 0 K/uL INR Sodium 137 (136-148) mmol/L Potassium 5.1 (3.5-5.1) mmol/L Chloride 103 (98-107) mmol/L Carbon Dioxide 25.3 (21.0-32.0) mmol/L BUN 27 H (7.0-18.0) mg/dL Creatinine 1.5 H (0.8-1.3) mg/dL Est Cr Clr Drug Dosing 50.99 mL/min Estimated GFR (MDRD) 45.9 ml/min Glucose 403 H (74-106) mg/dL POC Glucose 314 H (60-110) mg/dL Calcium 8.5 (8.5-10.1) mg/dL Total Bilirubin 0.8 (0.2-1.0) mg/dL AST 27 (15-37) IU/L ALT 21 (14-63) IU/L Alkaline Phosphatase 82 (46-116) U/L Total Protein 6.6 (6.4-8.2) g/dL Albumin 2.3 L (3.4-5.0) g/dL Globulin 4.3 H (2.6-4.0) g/dL Albumin/Globulin Ratio 0.5 L (0.9-1.6) 07/12/20 07/12/20 Range/Units 06:05 06:22 WBC (4.0-11.0) K/uL RBC (4.50-5.90) M/uL Hgb (13.0-17.0) g/dL Hct (38.0-50.0) % MCV (80.0-98.0) fL MCH (27.0-32.0) pg MCHC (31.0-37.0) g/dL RDW Std Deviation (28.0-62.0) fl RDW Coeff of Feliciano (11.0-15.0) % Plt Count (150-400) K/uL MPV (7.40-12.00) fL Add Manual Diff Neutrophils % (Manual) (48.0-80.0) % Band Neutrophils % % Lymphocytes % (Manual) (16.0-40.0) % Monocytes % (Manual) (0.0-15.0) % Nucleated RBC % /100WBC Absolute Seg Neuts (1.4-5.7) Band Neutrophils # Lymphocytes # (Manual) (0.6-2.4) Monocytes # (Manual) (0.0-0.8) Nucleated RBCs # K/uL INR 1.49 Sodium (136-148) mmol/L Potassium (3.5-5.1) mmol/L Chloride (98-107) mmol/L Carbon Dioxide (21.0-32.0) mmol/L BUN (7.0-18.0) mg/dL Creatinine (0.8-1.3) mg/dL Est Cr Clr Drug Dosing mL/min Estimated GFR (MDRD) ml/min Glucose (74-106) mg/dL POC Glucose 390 H (60-110) mg/dL Calcium (8.5-10.1) mg/dL Total Bilirubin (0.2-1.0) mg/dL AST (15-37) IU/L ALT (14-63) IU/L Alkaline Phosphatase (46-116) U/L Total Protein (6.4-8.2) g/dL Albumin (3.4-5.0) g/dL Globulin (2.6-4.0) g/dL Albumin/Globulin Ratio (0.9-1.6) Med Orders - Current: Current Medications Acetaminophen (Tylenol) 650 mg PO Q4H PRN PRN Reason: Pain (Mild 1-3)/fever Albuterol/Ipratropium (Combivent Respimat) 0 gm INH Q6H [facility] Last Admin: 07/12/20 11:10 Dose: 1 puff Documented by: Dexamethasone (Dexamethasone) 6 mg PO DAILY [facility] Last Admin: 07/12/20 10:05 Dose: 6 mg Documented by: Dextrose/Water (Dextrose 50% In Water) 50 ml IV ASDIRECTED PRN PRN Reason: Hypoglycemia Enoxaparin Sodium (Lovenox) 40 mg SUBCUT Q24H [facility] Last Admin: 07/11/20 18:12 Dose: 40 mg Documented by: Ferrous Sulfate (Ferrous Sulfate) 325 mg PO DAILY [facility] Last Admin: 07/12/20 10:05 Dose: 325 mg Documented by: Fludrocortisone Acetate (Florinef) 0.1 mg PO DAILY [facility] Last Admin: 07/12/20 10:06 Dose: 0.1 mg Documented by: Glucagon (Glucagen) 1 mg IM ASDIRECTED PRN PRN Reason: Hypoglycemia Remdesivir 100 mg/ Sodium (Chloride) 100 mls @ 100 mls/hr IV Q24H [facility] Stop: 07/15/20 14:59 Pantoprazole Sodium 40 mg/ (Sodium Chloride) 10 mls @ 300 mls/hr IV DAILY [facility] Last Admin: 07/12/20 10:06 Dose: 300 mls/hr Documented by: Insulin Aspart (Novolog) 0 unit SUBCUT TIDAC [facility]; Protocol Last Admin: 07/12/20 11:34 Dose: 10 unit Documented by: Insulin Glargine (Lantus Solostar) 50 units SUBCUT ACBREAKFAST [facility] Last Admin: 07/12/20 11:31 Dose: 50 units Documented by: Montelukast Sodium (Singulair) 10 mg PO BEDTIME [facility] Last Admin: 07/11/20 20:55 Dose: 10 mg Documented by: Duloxetine Hcl 20 Mg 1 each PO TID [facility] Last Admin: 07/12/20 11:36 Dose: Not Given Documented by: Tiotropium [Spiriva Respimat] 2.5 Mcg/Actuation 2 each INH DAILY [facility] Last Admin: 07/12/20 11:31 Dose: Not Given Documented by: Pyridostigmine (Challis 60 Mg) 2 each PO QID [facility] Last Admin: 07/12/20 12:55 Dose: 2 each Documented by: Pregabalin (Lyrica) 50 mg PO BID [facility] Last Admin: 07/12/20 10:06 Dose: 50 mg Documented by: Fluticasone/Salmeterol (Advair Diskus 250-50) 0 puff INH Q12H [facility] Last Admin: 07/12/20 10:07 Dose: 1 puff Documented by: Sodium Chloride (Saline Flush) 10 ml FLUSH ASDIRECTED PRN PRN Reason: Keep Vein Open Last Admin: 07/11/20 12:42 Dose: 10 ml Documented by: Sodium Chloride (Saline Flush) 2.5 ml FLUSH ASDIRECTED PRN PRN Reason: Keep Vein Open Last Admin: 07/11/20 12:42 Dose: 2.5 ml Documented by: Tamsulosin HCl (Flomax) 0.4 mg PO DAILY [facility] Last Admin: 07/12/20 10:05 Dose: 0.4 mg Documented by: Warfarin Sodium (Coumadin Ask) 1 each PO DAILY@1400 [facility] Discontinued Medications Dexamethasone (Dexamethasone) Confirm Administered Dose 8 mg .ROUTE .STK-MED ONE Stop: 07/11/20 12:39 Last Admin: 07/11/20 12:49 Dose: Not Given Documented by: Dexamethasone (Dexamethasone) 6 mg PO ONETIME ONE Stop: 07/11/20 12:44 Last Admin: 07/11/20 12:44 Dose: 6 mg Documented by: Sodium Chloride (Normal Saline) 1,000 mls @ 999 mls/hr IV .Bolus ONE Stop: 07/11/20 12:36 Last Admin: 07/11/20 12:42 Dose: 999 mls/hr Documented by: Remdesivir 200 mg/ Sodium (Chloride) 250 mls @ 250 mls/hr IV ONETIME ONE Stop: 07/11/20 12:25 Last Admin: 07/11/20 14:28 Dose: 250 mls/hr Documented by: Remdesivir 200 mg/ Sodium (Chloride) 250 mls @ 250 mls/hr IV ONETIME ONE Stop: 07/11/20 13:59 Last Admin: 07/11/20 16:50 Dose: Not Given Documented by: Ondansetron HCl (Zofran) 4 mg IVPUSH Q4H PRN PRN Reason: Nausea Pyridostigmine (Challis 60 Mg) 1 each PO DAILY [facility] Last Admin: 07/12/20 11:30 Dose: Not Given Documented by: Warfarin Sodium (Coumadin) 5 mg PO ONETIME ONE Stop: 07/11/20 18:01 Last Admin: 07/11/20 18:13 Dose: 5 mg Documented by: Warfarin Sodium (Coumadin) 2.5 mg PO DAILY@1400 ONE Stop: 07/12/20 14:01 - Exam Quality Assessment: Supplemental Oxygen General: Alert, Oriented, Mild Distress Lungs: Clear to Auscultation, Normal Respiratory Effort Cardiovascular: Regular Rate, Regular Rhythm GI/Abdominal Exam: Normal Bowel Sounds, Soft, Non-Tender Sepsis Event Note - Evaluation Sepsis Screening Result: No Definite Risk - Focused Exam Vital Signs: Vital Signs Temp Pulse Resp BP Pulse Ox 07/12/20 13:10 95 07/12/20 11:38 36.3 C 67 18 150/72 H 93 L 07/12/20 10:30 152/68 H 07/12/20 08:00 36.4 C 60 20 180/80 H 97 07/12/20 03:22 58 L 20 160/76 H 95 - Problem List Review Problem List Initiated/Reviewed/Updated: Yes - My Orders Last 24 Hours: My Active Orders 07/12/20 11:03 Consult to Physical Therapy [PT Evaluation and Treatment] [CONS] Routine - Plan Plan:: Assessment and Plan: 1. Acute hypoxic respiratory failure secondary to COVID-19: - treat with supplemental oxygen prn, dexamethasone 6 mg qd, Remdesivir, PPI and Combivent. - Patient given fact sheet for Remdesivir, risks were explained and consented to treatment. - CXR showed bilateral opacities. 2. Atrial fibrillation, on chronic anticoagulation with subtherapeutic INR: - Patient on warfarin for atrial fibrillation and aortic valve replacement. Will consult pharmacy for warfarin dosing. Will start patient on lovenox 40 mg subcut qd to bridge warfarin until therapeutic. - Patient on telemetry. 3. Diabetes mellitus type II: - Will resume long-acting home insulin, Novolog SSI, ADA diet and accuchecks TIDAC. 4. Past medical history of MS, myasthenia gravis, COPD, asthma, BPH and depression: - Continue home medications.
[2020-07-12] MEDS: REMDESIVIR 100 MG in Sodium Chloride 0.9% 100 ML IV SCH (14:58)
[2020-07-12] MEDS: Enoxaparin 40 MG/0.4 ML Syringe SUBCUT SCH (16:24)
[2020-07-12] MEDS ORDERED: Insulin Regular, Human 100 Units/ML 10 ML Vial SUBCUT ONE ×2 (18:43→23:40)
[2020-07-12] MEDS ORDERED: Insulin NPH/Insulin Regular,Human 70-30 100 Units/ML 10 ML Vial SUBCUT ONE ×2 (19:24→21:11)
[2020-07-12] MEDS: Montelukast 10 MG Tab PO SCH (20:55)
[2020-07-12] MEDS ORDERED: Glucagon,Human Recombinant 1 MG Vial IM PRN (21:11)
[2020-07-12] MEDS ORDERED: Insulin Glargine,Human Rec. Analog 100 Units/ML 3 ML Pen SUBCUT STA (23:36)
[2020-07-13] MEDS: Insulin Aspart 100 Units/ML 3 ML Pen SUBCUT SCH ×5 (00:02→13:22)
[2020-07-13] MEDS ORDERED: Insulin Regular, Human 100 Units/ML 10 ML Vial SUBCUT ONE (03:14)
[2020-07-13] MEDS: Fluticasone/Salmeterol 250-50 MCG Inhalation Powder 14/Diskus INH SCH (06:07)
[2020-07-13] MEDS: Albuterol/Ipratropium 4 GM Inhalation Spray INH SCH ×2 (06:07→11:51)
[2020-07-13 06:17] LABS: CARBON DIOXIDE,CO2 27.8 mmol/L (21.0-32.0); POTASSIUM,K 3.8 mmol/L (3.5-5.1)
--- NOTE | 2020-07-13 08:38 | PCM.PN ---
- General Info Date of Service: 07/13/20 Subjective Update: Reports still not having much of an appetite. Denies any SOB, cough, fevers or chest pain. - Patient Data Vitals - Most Recent: Last Vital Signs Temp 36.4 C 07/13/20 03:46 Pulse 64 07/13/20 03:46 Resp 18 07/13/20 03:46 BP 154/67 H 07/13/20 03:46 Pulse Ox 93 L 07/13/20 03:46 Weight - Most Recent: 111.13 kg I&O - Last 24 Hours: Intake & Output 07/12/20 07/13/20 07/13/20 22:59 06:59 14:59 Intake Total 1090 1200 Output Total 600 800 Balance 490 400 Lab Results Last 24 Hours: Laboratory Results - last 24 hr 07/12/20 07/12/20 07/12/20 Range/Units 15:15 15:18 18:36 WBC (4.0-11.0) K/uL RBC (4.50-5.90) M/uL Hgb (13.0-17.0) g/dL Hct (38.0-50.0) % MCV (80.0-98.0) fL MCH (27.0-32.0) pg MCHC (31.0-37.0) g/dL RDW Std Deviation (28.0-62.0) fl RDW Coeff of Feliciano (11.0-15.0) % Plt Count (150-400) K/uL MPV (7.40-12.00) fL Neut % (Auto) (48.0-80.0) % Lymph % (Auto) (16.0-40.0) % [place] % (Auto) (0.0-15.0) % Eos % (Auto) (0.0-7.0) % Baso % (Auto) (0.0-1.5) % Neut # (Auto) (1.4-5.7) K/uL Lymph # (Auto) (0.6-2.4) K/uL [place] # (Auto) (0.0-0.8) K/uL Eos # (Auto) (0.0-0.7) K/uL Baso # (Auto) (0.0-0.1) K/uL Nucleated RBC % /100WBC Nucleated RBCs # K/uL INR Sodium (136-148) mmol/L Potassium (3.5-5.1) mmol/L Chloride (98-107) mmol/L Carbon Dioxide (21.0-32.0) mmol/L BUN (7.0-18.0) mg/dL Creatinine (0.8-1.3) mg/dL Est Cr Clr Drug Dosing mL/min Estimated GFR (MDRD) ml/min Glucose (74-106) mg/dL POC Glucose > 500 H 470 H 477 H (60-110) mg/dL Calcium (8.5-10.1) mg/dL Phosphorus (2.6-4.7) mg/dL Magnesium (1.8-2.4) mg/dL Total Bilirubin (0.2-1.0) mg/dL AST (15-37) IU/L ALT (14-63) IU/L Alkaline Phosphatase (46-116) U/L Total Protein (6.4-8.2) g/dL Albumin (3.4-5.0) g/dL Globulin (2.6-4.0) g/dL Albumin/Globulin Ratio (0.9-1.6) 07/12/20 07/12/20 07/13/20 Range/Units 20:54 23:22 01:12 WBC (4.0-11.0) K/uL RBC (4.50-5.90) M/uL Hgb (13.0-17.0) g/dL Hct (38.0-50.0) % MCV (80.0-98.0) fL MCH (27.0-32.0) pg MCHC (31.0-37.0) g/dL RDW Std Deviation (28.0-62.0) fl RDW Coeff of Felician[place] (11.0-15.0) % Plt Count (150-400) K/uL MPV (7.40-12.00) fL Neut % (Auto) (48.0-80.0) % Lymph % (Auto) (16.0-40.0) % [place] % (Auto) (0.0-15.0) % Eos % (Auto) (0.0-7.0) % Baso % (Auto) (0.0-1.5) % Neut # (Auto) (1.4-5.7) K/uL Lymph # (Auto) (0.6-2.4) K/uL [place] # (Auto) (0.0-0.8) K/uL Eos # (Auto) (0.0-0.7) K/uL Baso # (Auto) (0.0-0.1) K/uL Nucleated RBC % /100WBC Nucleated RBCs # K/uL INR Sodium (136-148) mmol/L Potassium (3.5-5.1) mmol/L Chloride (98-107) mmol/L Carbon Dioxide (21.0-32.0) mmol/L BUN (7.0-18.0) mg/dL Creatinine (0.8-1.3) mg/dL Est Cr Clr Drug Dosing mL/min Estimated GFR (MDRD) ml/min Glucose (74-106) mg/dL POC Glucose 413 H 498 H 451 H (60-110) mg/dL Calcium (8.5-10.1) mg/dL Phosphorus (2.6-4.7) mg/dL Magnesium (1.8-2.4) mg/dL Total Bilirubin (0.2-1.0) mg/dL AST (15-37) IU/L ALT (14-63) IU/L Alkaline Phosphatase (46-116) U/L Total Protein (6.4-8.2) g/dL Albumin (3.4-5.0) g/dL Globulin (2.6-4.0) g/dL Albumin/Globulin Ratio (0.9-1.6) 07/13/20 07/13/20 07/13/20 Range/Units 04:51 05:28 05:28 WBC 7.29 (4.0-11.0) K/uL RBC 4.96 (4.50-5.90) M/uL Hgb 11.9 L (13.0-17.0) g/dL Hct 38.8 (38.0-50.0) % MCV 78.2 L (80.0-98.0) fL MCH 24.0 L (27.0-32.0) pg MCHC 30.7 L (31.0-37.0) g/dL RDW Std Deviation 57.0 (28.0-62.0) fl RDW Coeff of Feliciano 20 H (11.0-15.0) % Plt Count 212 (150-400) K/uL MPV 10.40 (7.40-12.00) fL Neut % (Auto) 90.3 H (48.0-80.0) % Lymph % (Auto) 5.3 L (16.0-40.0) % [place] % (Auto) 4.4 (0.0-15.0) % Eos % (Auto) 0.0 (0.0-7.0) % Baso % (Auto) 0.0 (0.0-1.5) % Neut # (Auto) 6.6 H (1.4-5.7) K/uL Lymph # (Auto) 0.4 L (0.6-2.4) K/uL [place] # (Auto) 0.3 (0.0-0.8) K/uL Eos # (Auto) 0.0 (0.0-0.7) K/uL Baso # (Auto) 0.0 (0.0-0.1) K/uL Nucleated RBC % 0.0 /100WBC Nucleated RBCs # 0 K/uL INR 2.18 Sodium (136-148) mmol/L Potassium (3.5-5.1) mmol/L Chloride (98-107) mmol/L Carbon Dioxide (21.0-32.0) mmol/L BUN (7.0-18.0) mg/dL Creatinine (0.8-1.3) mg/dL Est Cr Clr Drug Dosing mL/min Estimated GFR (MDRD) ml/min Glucose (74-106) mg/dL POC Glucose 282 H (60-110) mg/dL Calcium (8.5-10.1) mg/dL Phosphorus (2.6-4.7) mg/dL Magnesium (1.8-2.4) mg/dL Total Bilirubin (0.2-1.0) mg/dL AST (15-37) IU/L ALT (14-63) IU/L Alkaline Phosphatase (46-116) U/L Total Protein (6.4-8.2) g/dL Albumin (3.4-5.0) g/dL Globulin (2.6-4.0) g/dL Albumin/Globulin Ratio (0.9-1.6) 07/13/20 07/13/20 Range/Units 05:28 06:28 WBC (4.0-11.0) K/uL RBC (4.50-5.90) M/uL Hgb (13.0-17.0) g/dL Hct (38.0-50.0) % MCV (80.0-98.0) fL MCH (27.0-32.0) pg MCHC (31.0-37.0) g/dL RDW Std Deviation (28.0-62.0) fl RDW Coeff of Feliciano (11.0-15.0) % Plt Count (150-400) K/uL MPV (7.40-12.00) fL Neut % (Auto) (48.0-80.0) % Lymph % (Auto) (16.0-40.0) % [place]oll[place] % (Auto) (0.0-15.0) % Eos % (Auto) (0.0-7.0) % Baso % (Auto) (0.0-1.5) % Neut # (Auto) (1.4-5.7) K/uL Lymph # (Auto) (0.6-2.4) K/uL [place] # (Auto) (0.0-0.8) K/uL Eos # (Auto) (0.0-0.7) K/uL Baso # (Auto) (0.0-0.1) K/uL Nucleated RBC % /100WBC Nucleated RBCs # K/uL INR Sodium 134 L (136-148) mmol/L Potassium 3.8 (3.5-5.1) mmol/L Chloride 102 (98-107) mmol/L Carbon Dioxide 27.8 (21.0-32.0) mmol/L BUN 38 H (7.0-18.0) mg/dL Creatinine 1.4 H (0.8-1.3) mg/dL Est Cr Clr Drug Dosing 54.64 mL/min Estimated GFR (MDRD) 49.7 ml/min Glucose 253 H (74-106) mg/dL POC Glucose 244 H (60-110) mg/dL Calcium 8.1 L (8.5-10.1) mg/dL Phosphorus 2.1 L (2.6-4.7) mg/dL Magnesium 2.5 H (1.8-2.4) mg/dL Total Bilirubin 0.4 (0.2-1.0) mg/dL AST 21 (15-37) IU/L ALT 18 (14-63) IU/L Alkaline Phosphatase 75 (46-116) U/L Total Protein 6.0 L (6.4-8.2) g/dL Albumin 2.2 L (3.4-5.0) g/dL Globulin 3.8 (2.6-4.0) g/dL Albumin/Globulin Ratio 0.6 L (0.9-1.6) Med Orders - Current: Current Medications Acetaminophen (Tylenol) 650 mg PO Q4H PRN PRN Reason: Pain (Mild 1-3)/fever Albuterol/Ipratropium (Combivent Respimat) 0 gm INH Q6H [facility] Last Admin: 07/13/20 06:07 Dose: 1 puff Documented by: Dexamethasone (Dexamethasone) 6 mg PO DAILY [facility] Last Admin: 07/12/20 10:05 Dose: 6 mg Documented by: Dextrose/Water (Dextrose 50% In Water) 50 ml IV ASDIRECTED PRN PRN Reason: Hypoglycemia Ferrous Sulfate (Ferrous Sulfate) 325 mg PO DAILY [facility] Last Admin: 07/12/20 10:05 Dose: 325 mg Documented by: Fludrocortisone Acetate (Florinef) 0.1 mg PO DAILY [facility] Last Admin: 07/12/20 10:06 Dose: 0.1 mg Documented by: Glucagon (Glucagen) 1 mg IM ASDIRECTED PRN PRN Reason: Hypoglycemia Glucagon (Glucagen) 1 mg IM ASDIRECTED PRN PRN Reason: Hypoglycemia Remdesivir 100 mg/ Sodium (Chloride) 100 mls @ 100 mls/hr IV Q24H [facility] Stop: 07/15/20 14:59 Last Admin: 07/12/20 14:58 Dose: 100 mls/hr Documented by: Pantoprazole Sodium 40 mg/ (Sodium Chloride) 10 mls @ 300 mls/hr IV DAILY [facility] Last Admin: 07/12/20 10:06 Dose: 300 mls/hr Documented by: Insulin Aspart (Novolog) 0 unit SUBCUT TIDAC [facility]; Protocol Last Admin: 07/12/20 19:48 Dose: Not Given Documented by: Insulin Aspart (Novolog) 5 unit SUBCUT TIDAC [facility] Last Admin: 07/13/20 00:02 Dose: 5 units Documented by: Insulin Glargine (Lantus Solostar) 50 units SUBCUT ACBREAKFAST [facility] Last Admin: 07/12/20 11:31 Dose: 50 units Documented by: Montelukast Sodium (Singulair) 10 mg PO BEDTIME [facility] Last Admin: 07/12/20 20:55 Dose: 10 mg Documented by: Duloxetine Hcl 20 Mg 1 each PO TID [facility] Last Admin: 07/13/20 06:30 Dose: 1 each Documented by: Tiotropium [Spiriva Respimat] 2.5 Mcg/Actuation 2 each INH DAILY [facility] Last Admin: 07/12/20 11:31 Dose: Not Given Documented by: Pyridostigmine ([place] 60 Mg) 2 each PO QID [facility] Last Admin: 07/13/20 06:30 Dose: 2 each Documented by: Pregabalin (Lyrica) 50 mg PO BID [facility] Last Admin: 07/12/20 20:55 Dose: 50 mg Documented by: Fluticasone/Salmeterol (Advair Diskus 250-50) 0 puff INH Q12H [facility] Last Admin: 07/13/20 06:07 Dose: 1 puff Documented by: Sodium Chloride (Saline Flush) 10 ml FLUSH ASDIRECTED PRN PRN Reason: Keep Vein Open Last Admin: 07/11/20 12:42 Dose: 10 ml Documented by: Sodium Chloride (Saline Flush) 2.5 ml FLUSH ASDIRECTED PRN PRN Reason: Keep Vein Open Last Admin: 07/11/20 12:42 Dose: 2.5 ml Documented by: Tamsulosin HCl (Flomax) 0.4 mg PO DAILY [facility] Last Admin: 07/12/20 10:05 Dose: 0.4 mg Documented by: Warfarin Sodium (Coumadin Ask) 1 each PO DAILY@1400 [facility] Last Admin: 07/12/20 15:29 Dose: Not Given Documented by: Discontinued Medications Dexamethasone (Dexamethasone) Confirm Administered Dose 8 mg .ROUTE .STK-MED ONE Stop: 07/11/20 12:39 Last Admin: 07/11/20 12:49 Dose: Not Given Documented by: Dexamethasone (Dexamethasone) 6 mg PO ONETIME ONE Stop: 07/11/20 12:44 Last Admin: 07/11/20 12:44 Dose: 6 mg Documented by: Enoxaparin Sodium (Lovenox) 40 mg SUBCUT Q24H [facility] Last Admin: 07/12/20 16:24 Dose: 40 mg Documented by: Sodium Chloride (Normal Saline) 1,000 mls @ 999 mls/hr IV .Bolus ONE Stop: 07/11/20 12:36 Last Admin: 07/11/20 12:42 Dose: 999 mls/hr Documented by: Remdesivir 200 mg/ Sodium (Chloride) 250 mls @ 250 mls/hr IV ONETIME ONE Stop: 07/11/20 12:25 Last Admin: 07/11/20 14:28 Dose: 250 mls/hr Documented by: Remdesivir 200 mg/ Sodium (Chloride) 250 mls @ 250 mls/hr IV ONETIME ONE Stop: 07/11/20 13:59 Last Admin: 07/11/20 16:50 Dose: Not Given Documented by: [facility]ulin [facility]) [facility] Protocol Last Admin: 07/12/20 15:25 Dose: 15 unit Documented by: Insulin Glargine (Lantus Solostar) 25 units SUBCUT NOW STA Stop: 07/12/20 23:37 Last Admin: 07/12/20 23:52 Dose: 25 units Documented by: Insulin Human Isoph/Insulin Regular (Novolin 70-30) Confirm Administered Dose 1,000 unit SUBCUT .STK-MED ONE Stop: 07/12/20 19:25 Last Admin: 07/12/20 22:14 Dose: Not Given Documented by: Insulin Human Isoph/Insulin Regular (Novolin 70-30) 15 unit SUBCUT ONETIME ONE Stop: 07/12/20 21:12 Last Admin: 07/12/20 21:39 Dose: 15 units Documented by: Insulin Human Regular (Novolin R) 20 unit SUBCUT ONETIME ONE; Protocol Stop: 07/12/20 18:44 Last Admin: 07/12/20 19:37 Dose: 20 units Documented by: Insulin Human Regular (Novolin R) 20 unit SUBCUT ONETIME ONE; Protocol Stop: 07/12/20 23:41 Last Admin: 07/13/20 00:00 Dose: 20 units Documented by: Insulin Human Regular (Novolin R) 10 unit SUBCUT ONETIME ONE; Protocol Stop: 07/13/20 03:15 Last Admin: 07/13/20 03:49 Dose: 10 units Documented by: Ondansetron HCl (Zofran) 4 mg IVPUSH Q4H PRN PRN Reason: Nausea Pyridostigmine ([place] 60 Mg) 1 each PO DAILY [facility] Last Admin: 07/12/20 11:30 Dose: Not Given Documented by: Warfarin Sodium (Coumadin) 5 mg PO ONETIME ONE Stop: 07/11/20 18:01 Last Admin: 07/11/20 18:13 Dose: 5 mg Documented by: Warfarin Sodium (Coumadin) 2.5 mg PO DAILY@1400 ONE Stop: 07/12/20 14:01 Last Admin: 07/12/20 14:59 Dose: 2.5 mg Documented by: - Exam General: Alert, Oriented, Cooperative, No Acute Distress Lungs: Clear to Auscultation, Normal Respiratory Effort Cardiovascular: Regular Rate, Regular Rhythm GI/Abdominal Exam: Normal Bowel Sounds, Soft, Non-Tender, No Distention Extremities: Normal Inspection, No Pedal Edema Sepsis Event Note - Evaluation Sepsis Screening Result: No Definite Risk - Focused Exam Vital Signs: Vital Signs Temp Pulse Resp BP Pulse Ox 07/13/20 03:46 36.4 C 64 18 154/67 H 93 L 07/12/20 23:29 36.3 C 70 18 173/81 H 95 07/12/20 20:51 36.4 C 75 18 143/77 H 92 L - Problem List & Annotations (1) COVID-19 SNOMED Code(s): 702232010 Code(s): U07.1 - COVID-19 Status: Acute Current Visit: Yes (2) Hypoxia SNOMED Code(s): 799213890 Code(s): R09.02 - HYPOXEMIA Status: Acute Current Visit: Yes - Problem List Review Problem List Initiated/Reviewed/Updated: Yes - My Orders Last 24 Hours: My Active Orders 07/12/20 09:00 Ferrous Sulfate 325 mg PO DAILY Fludrocortisone [Florinef] 0.1 mg PO DAILY Patient's Own Medication [Ptom] 2 each INH DAILY Tamsulosin [Flomax] 0.4 mg PO DAILY dexAMETHasone 6 mg PO DAILY 07/12/20 12:00 Patient's Own Medication [Ptom] 2 each PO QID 07/12/20 14:00 Remdesivir (Eua) [Remdesivir (EUA)] 100 mg Sodium Chloride 0.9% [Normal Saline] 100 ml IV Q24H Warfarin Dosing [Coumadin Ask] 1 each PO DAILY@1400 07/14/20 05:11 INR,PT,PROTHROMBIN TIME [COAG] DAILY 07/15/20 05:11 INR,PT,PROTHROMBIN TIME [COAG] DAILY 07/16/20 05:11 INR,PT,PROTHROMBIN TIME [COAG] DAILY - Plan Plan:: Assessment and Plan: 1. Acute hypoxic respiratory failure secondary to COVID-19: - Continue supplemental oxygen prn and will wean as appropriate. Continue dexamethasone 6 mg qd, Remdesivir, PPI and Combivent. - Patient given fact sheet for Remdesivir, risks were explained and consented to treatment. - CXR showed bilateral opacities. 2. Atrial fibrillation, on chronic anticoagulation with subtherapeutic INR: - Patient on warfarin for atrial fibrillation and aortic valve replacement. Pharmacy consulted for warfarin dosing. Continue lovenox 40 mg subcut qd until warfarin therapeutic. - Patient on telemetry. 3. Diabetes mellitus type II: - Patient on ADA Diet. Lantus 50 units qd, Novolog 5 units TIDAC with SSI and accuchecks TIDAC. 4. Past medical history of MS, myasthenia gravis, COPD, asthma, BPH and depression: - Continue home medications.
[2020-07-13] MEDS: Fludrocortisone 0.1 MG Tab PO SCH (09:06)
[2020-07-13] MEDS: Dexamethasone 4 MG Tab PO SCH (09:06)
[2020-07-13] MEDS: Ferrous Sulfate 325 MG Tab PO SCH (09:07)
[2020-07-13] MEDS: Tamsulosin 0.4 MG Cap.ER PO SCH (09:07)
[2020-07-13] MEDS: Pantoprazole 40 MG in Sodium Chloride 0.9% 10 ML IV SCH (09:08)
[2020-07-13] MEDS: Pregabalin 50 MG Cap PO SCH (09:08)
[2020-07-13] MEDS: Insulin Glargine,Human Rec. Analog 100 Units/ML 3 ML Pen SUBCUT SCH (09:14)
[2020-07-13 10:35] LABS: HEMOGLOBIN A1C 8.6 % (4.5-6.2)
--- NOTE | 2020-07-13 11:33 | PCM.DCSUM1 ---
<Louie Queen M - Last Filed: 07/13/20 15:32> Discharge Summary - Hospital Course Free Text/Narrative:: 74-year-old male admitted for acute hypoxic respiratory failure secondary to COVID-19. He has a PMH of a-fib, DM type II, MS, myasthenia gravis, COPD, asthma, BPH and depression. Patient was started on supplemental oxygen, dexamethasone, Remdesivir and Combivent. CXR on admission showed bilateral opacities. Patient's INR was noted to be subtherapeutic so pharmacy was consulted for warfarin dosing. Patient will need to follow-up with PCP for further monitoring of INR. By day of discharge, patient was weaned off of supplemental oxygen. He was discharged in stable condition. His blood glucose levels were noted to be very high likely secondary to steroids. His long-acting insulin was increased to 60 units subcut qd and advised to continue taking Novolog 8 units BID as he was taken before. Advised patient to continue monitoring his blood glucose levels. Advised to follow-up with PCP on discharge. - Discharge Data Discharge Date: 07/13/20 Discharge Disposition: Home, Self-Care 01 Condition: Stable - Referral to Home Health Primary Care Physician: [facility] - Discharge Diagnosis/Problem(s) (1) COVID-19 SNOMED Code(s): 045775568 ICD Code: U07.1 - COVID-19 Status: Acute (2) Hypoxia SNOMED Code(s): 772746245 ICD Code: R09.02 - HYPOXEMIA Status: Acute - Patient Summary/Data Consults: Consultations 07/12/20 11:03 Consult to Physical Therapy [PT Evaluation and Treatment] [CONS] Routine - Patient Instructions Diet: Diabetic Diet Activity: As Tolerated Notify Provider of: Fever, Increased Pain, Swelling and Redness, Drainage, Nausea and/or Vomiting Other/Special Instructions: worsening shortness of breath. chest pain - Discharge Plan *PRESCRIPTION DRUG MONITORING PROGRAM REVIEWED*: Not Applicable *COPY OF PRESCRIPTION DRUG MONITORING REPORT IN PATIENT MARLENA: Not Applicable Home Medications: Home Meds Albuterol Sulfate [Proair Respiclick] 90 mcg INH ASDIRECTED 07/08/20 [History] DULoxetine HCl [Duloxetine HCl] 20 mg PO TID 07/08/20 [History] Ferrous Sulfate 325 mg PO DAILY 07/08/20 [History] Fludrocortisone Acetate 0.1 mg PO DAILY 07/08/20 [History] Fluticasone Propion/Salmeterol [Fluticasone-Salmeterol 250-50] 1 puff INH Q12H 07/08/20 [History] Insulin Aspart [Insulin Aspart Flexpen] 8 units INJECT BID 07/08/20 [History] Montelukast [Singulair] 10 mg PO BEDTIME 07/08/20 [History] Pantoprazole [ProTONIX] 40 mg PO DAILY 07/08/20 [History] Pregabalin [Lyrica] 50 mg PO BID 07/08/20 [History] Pyridostigmine [place] 120 mg PO Q6HR 07/08/20 [History] Tamsulosin HCl [Flomax] 0.4 mg PO DAILY 07/08/20 [History] Tiotropium [Spiriva HandiHaler] 2.5 mcg INH DAILY 07/08/20 [History] Warfarin [Coumadin] 2.5 mg PO DAILY 07/08/20 [History] predniSONE [Prednisone] 20 mg PO DAILY 07/08/20 [History] Insulin Glarg,Human.Rec.Analog [Lantus Solostar] 60 units INJECT ACBREAKFAST #0 07/13/20 [Rx] Oxygen Therapy Mode: Room Air Patient Handouts: Hypoxia, COVID-19, COVID-19: How to Protect Yourself and Others - CDC, Prevent the Spread of COVID-19 if You Are Sick - [facility] Forms: ED Department Discharge Referrals: Satnam Duncan NP [Ordering Only Provider] - 07/27/20 10:30 am (Please arrive 15mins early. Bring ID, insurance information and own mask. ) - Discharge Summary/Plan Comment DC Time >30 min.: No - Patient Data Vitals - Most Recent: Last Vital Signs Temp 35.9 C L 07/13/20 09:05 Pulse 99 07/13/20 09:05 Resp 18 07/13/20 09:05 BP 136/76 07/13/20 09:05 Pulse Ox 95 07/13/20 09:05 Weight - Most Recent: 111.13 kg I&O - Last 24 hours: Intake & Output 07/12/20 07/13/20 07/13/20 22:59 06:59 14:59 Intake Total 1090 1200 Output Total 600 800 Balance 490 400 Lab Results - Last 24 hrs: Laboratory Results - last 24 hr 07/12/20 07/12/20 07/12/20 Range/Units 15:15 15:18 18:36 WBC (4.0-11.0) K/uL RBC (4.50-5.90) M/uL Hgb (13.0-17.0) g/dL Hct (38.0-50.0) % MCV (80.0-98.0) fL MCH (27.0-32.0) pg MCHC (31.0-37.0) g/dL RDW Std Deviation (28.0-62.0) fl RDW Coeff of Feliciano (11.0-15.0) % Plt Count (150-400) K/uL MPV (7.40-12.00) fL Neut % (Auto) (48.0-80.0) % Lymph % (Auto) (16.0-40.0) % [place] % (Auto) (0.0-15.0) % Eos % (Auto) (0.0-7.0) % Baso % (Auto) (0.0-1.5) % Neut # (Auto) (1.4-5.7) K/uL Lymph # (Auto) (0.6-2.4) K/uL [place] # (Auto) (0.0-0.8) K/uL Eos # (Auto) (0.0-0.7) K/uL Baso # (Auto) (0.0-0.1) K/uL Nucleated RBC % /100WBC Nucleated RBCs # K/uL INR Sodium (136-148) mmol/L Potassium (3.5-5.1) mmol/L Chloride (98-107) mmol/L Carbon Dioxide (21.0-32.0) mmol/L BUN (7.0-18.0) mg/dL Creatinine (0.8-1.3) mg/dL Est Cr Clr Drug Dosing mL/min Estimated GFR (MDRD) ml/min Glucose (74-106) mg/dL POC Glucose > 500 H 470 H 477 H (60-110) mg/dL Hemoglobin A1c (4.5-6.2) % Calcium (8.5-10.1) mg/dL Phosphorus (2.6-4.7) mg/dL Magnesium (1.8-2.4) mg/dL Total Bilirubin (0.2-1.0) mg/dL AST (15-37) IU/L ALT (14-63) IU/L Alkaline Phosphatase (46-116) U/L Total Protein (6.4-8.2) g/dL Albumin (3.4-5.0) g/dL Globulin (2.6-4.0) g/dL Albumin/Globulin Ratio (0.9-1.6) 07/12/20 07/12/20 07/13/20 Range/Units 20:54 23:22 01:12 WBC (4.0-11.0) K/uL RBC (4.50-5.90) M/uL Hgb (13.0-17.0) g/dL Hct (38.0-50.0) % MCV (80.0-98.0) fL MCH (27.0-32.0) pg MCHC (31.0-37.0) g/dL RDW Std Deviation (28.0-62.0) fl RDW Coeff of [place]ician[place] (11.0-15.0) % Plt Count (150-400) K/uL MPV (7.40-12.00) fL Neut % (Auto) (48.0-80.0) % Lymph % (Auto) (16.0-40.0) % [place] % (Auto) (0.0-15.0) % Eos % (Auto) (0.0-7.0) % Baso % (Auto) (0.0-1.5) % Neut # (Auto) (1.4-5.7) K/uL Lymph # (Auto) (0.6-2.4) K/uL [place] # (Auto) (0.0-0.8) K/uL Eos # (Auto) (0.0-0.7) K/uL Baso # (Auto) (0.0-0.1) K/uL Nucleated RBC % /100WBC Nucleated RBCs # K/uL INR Sodium (136-148) mmol/L Potassium (3.5-5.1) mmol/L Chloride (98-107) mmol/L Carbon Dioxide (21.0-32.0) mmol/L BUN (7.0-18.0) mg/dL Creatinine (0.8-1.3) mg/dL Est Cr Clr Drug Dosing mL/min Estimated GFR (MDRD) ml/min Glucose (74-106) mg/dL POC Glucose 413 H 498 H 451 H (60-110) mg/dL Hemoglobin A1c (4.5-6.2) % Calcium (8.5-10.1) mg/dL Phosphorus (2.6-4.7) mg/dL Magnesium (1.8-2.4) mg/dL Total Bilirubin (0.2-1.0) mg/dL AST (15-37) IU/L ALT (14-63) IU/L Alkaline Phosphatase (46-116) U/L Total Protein (6.4-8.2) g/dL Albumin (3.4-5.0) g/dL Globulin (2.6-4.0) g/dL Albumin/Globulin Ratio (0.9-1.6) 07/13/20 07/13/20 07/13/20 Range/Units 04:51 05:28 05:28 WBC 7.29 (4.0-11.0) K/uL RBC 4.96 (4.50-5.90) M/uL Hgb 11.9 L (13.0-17.0) g/dL Hct 38.8 (38.0-50.0) % MCV 78.2 L (80.0-98.0) fL MCH 24.0 L (27.0-32.0) pg MCHC 30.7 L (31.0-37.0) g/dL RDW Std Deviation 57.0 (28.0-62.0) fl RDW Coeff of Felician[place] 20 H (11.0-15.0) % Plt Count 212 (150-400) K/uL MPV 10.40 (7.40-12.00) fL Neut % (Auto) 90.3 H (48.0-80.0) % Lymph % (Auto) 5.3 L (16.0-40.0) % [place] % (Auto) 4.4 (0.0-15.0) % Eos % (Auto) 0.0 (0.0-7.0) % Baso % (Auto) 0.0 (0.0-1.5) % Neut # (Auto) 6.6 H (1.4-5.7) K/uL Lymph # (Auto) 0.4 L (0.6-2.4) K/uL [place] # (Auto) 0.3 (0.0-0.8) K/uL Eos # (Auto) 0.0 (0.0-0.7) K/uL Baso # (Auto) 0.0 (0.0-0.1) K/uL Nucleated RBC % 0.0 /100WBC Nucleated RBCs # 0 K/uL INR 2.18 Sodium (136-148) mmol/L Potassium (3.5-5.1) mmol/L Chloride (98-107) mmol/L Carbon Dioxide (21.0-32.0) mmol/L BUN (7.0-18.0) mg/dL Creatinine (0.8-1.3) mg/dL Est Cr Clr Drug Dosing mL/min Estimated GFR (MDRD) ml/min Glucose (74-106) mg/dL POC Glucose 282 H (60-110) mg/dL Hemoglobin A1c (4.5-6.2) % Calcium (8.5-10.1) mg/dL Phosphorus (2.6-4.7) mg/dL Magnesium (1.8-2.4) mg/dL Total Bilirubin (0.2-1.0) mg/dL AST (15-37) IU/L ALT (14-63) IU/L Alkaline Phosphatase (46-116) U/L Total Protein (6.4-8.2) g/dL Albumin (3.4-5.0) g/dL Globulin (2.6-4.0) g/dL Albumin/Globulin Ratio (0.9-1.6) 07/13/20 07/13/20 07/13/20 Range/Units 05:28 05:28 06:28 WBC (4.0-11.0) K/uL RBC (4.50-5.90) M/uL Hgb (13.0-17.0) g/dL Hct (38.0-50.0) % MCV (80.0-98.0) fL MCH (27.0-32.0) pg MCHC (31.0-37.0) g/dL RDW Std Deviation (28.0-62.0) fl RDW Coeff of Felician[place] (11.0-15.0) % Plt Count (150-400) K/uL MPV (7.40-12.00) fL Neut % (Auto) (48.0-80.0) % Lymph % (Auto) (16.0-40.0) % [place] % (Auto) (0.0-15.0) % Eos % (Auto) (0.0-7.0) % Baso % (Auto) (0.0-1.5) % Neut # (Auto) (1.4-5.7) K/uL Lymph # (Auto) (0.6-2.4) K/uL [place] # (Auto) (0.0-0.8) K/uL Eos # (Auto) (0.0-0.7) K/uL Baso # (Auto) (0.0-0.1) K/uL Nucleated RBC % /100WBC Nucleated RBCs # K/uL INR Sodium 134 L (136-148) mmol/L Potassium 3.8 (3.5-5.1) mmol/L Chloride 102 (98-107) mmol/L Carbon Dioxide 27.8 (21.0-32.0) mmol/L BUN 38 H (7.0-18.0) mg/dL Creatinine 1.4 H (0.8-1.3) mg/dL Est Cr Clr Drug Dosing 54.64 mL/min Estimated GFR (MDRD) 49.7 ml/min Glucose 253 H (74-106) mg/dL POC Glucose 244 H (60-110) mg/dL Hemoglobin A1c 8.6 H (4.5-6.2) % Calcium 8.1 L (8.5-10.1) mg/dL Phosphorus 2.1 L (2.6-4.7) mg/dL Magnesium 2.5 H (1.8-2.4) mg/dL Total Bilirubin 0.4 (0.2-1.0) mg/dL AST 21 (15-37) IU/L ALT 18 (14-63) IU/L Alkaline Phosphatase 75 (46-116) U/L Total Protein 6.0 L (6.4-8.2) g/dL Albumin 2.2 L (3.4-5.0) g/dL Globulin 3.8 (2.6-4.0) g/dL Albumin/Globulin Ratio 0.6 L (0.9-1.6) Med Orders - Current: Current Medications Acetaminophen (Tylenol) 650 mg PO Q4H PRN PRN Reason: Pain (Mild 1-3)/fever Albuterol/Ipratropium (Combivent Respimat) 0 gm INH Q6H [facility] Last Admin: 07/13/20 06:07 Dose: 1 puff Documented by: Dexamethasone (Dexamethasone) 6 mg PO DAILY [facility] Last Admin: 07/13/20 09:06 Dose: 6 mg Documented by: Dextrose/Water (Dextrose 50% In Water) 50 ml IV ASDIRECTED PRN PRN Reason: Hypoglycemia Ferrous Sulfate (Ferrous Sulfate) 325 mg PO DAILY [facility] Last Admin: 07/13/20 09:07 Dose: 325 mg Documented by: Fludrocortisone Acetate (Florinef) 0.1 mg PO DAILY [facility] Last Admin: 07/13/20 09:06 Dose: 0.1 mg Documented by: Glucagon (Glucagen) 1 mg IM ASDIRECTED PRN PRN Reason: Hypoglycemia Glucagon (Glucagen) 1 mg IM ASDIRECTED PRN PRN Reason: Hypoglycemia Remdesivir 100 mg/ Sodium (Chloride) 100 mls @ 100 mls/hr IV Q24H [facility] Stop: 07/15/20 14:59 Last Admin: 07/12/20 14:58 Dose: 100 mls/hr Documented by: Pantoprazole Sodium 40 mg/ (Sodium Chloride) 10 mls @ 300 mls/hr IV DAILY [facility] Last Admin: 07/13/20 09:08 Dose: 300 mls/hr Documented by: Insulin Aspart (Novolog) 0 unit SUBCUT TIDAC [facility]; Protocol Last Admin: 07/13/20 09:18 Dose: 6 units Documented by: Insulin Aspart (Novolog) 5 unit SUBCUT TIDAC [facility] Last Admin: 07/13/20 09:17 Dose: 5 units Documented by: Insulin Glargine (Lantus Solostar) 50 units SUBCUT ACBREAKFAST [facility] Last Admin: 07/13/20 09:14 Dose: 50 units Documented by: Montelukast Sodium (Singulair) 10 mg PO BEDTIME [facility] Last Admin: 07/12/20 20:55 Dose: 10 mg Documented by: Duloxetine Hcl 20 Mg 1 each PO TID [facility] Last Admin: 07/13/20 06:30 Dose: 1 each Documented by: Tiotropium [Spiriva Respimat] 2.5 Mcg/Actuation 2 each INH DAILY [facility] Last Admin: 07/12/20 11:31 Dose: Not Given Documented by: Pyridostigmine ([place] 60 Mg) 2 each PO QID [facility] Last Admin: 07/13/20 06:30 Dose: 2 each Documented by: Pregabalin (Lyrica) 50 mg PO BID [facility] Last Admin: 07/13/20 09:08 Dose: 50 mg Documented by: Fluticasone/Salmeterol (Advair Diskus 250-50) 0 puff INH Q12H [facility] Last Admin: 07/13/20 06:07 Dose: 1 puff Documented by: Sodium Chloride (Saline Flush) 10 ml FLUSH ASDIRECTED PRN PRN Reason: Keep Vein Open Last Admin: 07/11/20 12:42 Dose: 10 ml Documented by: Sodium Chloride (Saline Flush) 2.5 ml FLUSH ASDIRECTED PRN PRN Reason: Keep Vein Open Last Admin: 07/11/20 12:42 Dose: 2.5 ml Documented by: Tamsulosin HCl (Flomax) 0.4 mg PO DAILY [facility] Last Admin: 07/13/20 09:07 Dose: 0.4 mg Documented by: Warfarin Sodium (Coumadin Ask) 1 each PO DAILY@1400 [facility] Last Admin: 07/12/20 15:29 Dose: Not Given Documented by: Discontinued Medications Dexamethasone (Dexamethasone) Confirm Administered Dose 8 mg .ROUTE .STK-MED ONE Stop: 07/11/20 12:39 Last Admin: 07/11/20 12:49 Dose: Not Given Documented by: Dexamethasone (Dexamethasone) 6 mg PO ONETIME ONE Stop: 07/11/20 12:44 Last Admin: 07/11/20 12:44 Dose: 6 mg Documented by: Enoxaparin Sodium (Lovenox) 40 mg SUBCUT Q24H [facility] Last Admin: 07/12/20 16:24 Dose: 40 mg Documented by: Sodium Chloride (Normal Saline) 1,000 mls @ 999 mls/hr IV .Bolus ONE Stop: 07/11/20 12:36 Last Admin: 07/11/20 12:42 Dose: 999 mls/hr Documented by: Remdesivir 200 mg/ Sodium (Chloride) 250 mls @ 250 mls/hr IV ONETIME ONE Stop: 07/11/20 12:25 Last Admin: 07/11/20 14:28 Dose: 250 mls/hr Documented by: Remdesivir 200 mg/ Sodium (Chloride) 250 mls @ 250 mls/hr IV ONETIME ONE Stop: 07/11/20 13:59 Last Admin: 07/11/20 16:50 Dose: Not Given Documented by: Insulin Aspart (Novolog) 0 unit SUBCUT TIDAC [facility]; Protocol Last Admin: 07/12/20 15:25 Dose: 15 unit Documented by: Insulin Glargine (Lantus Solostar) 25 units SUBCUT NOW STA Stop: 07/12/20 23:37 Last Admin: 07/12/20 23:52 Dose: 25 units Documented by: Insulin Human Isoph/Insulin Regular (Novolin 70-30) Confirm Administered Dose 1,000 unit SUBCUT .STK-MED ONE Stop: 07/12/20 19:25 Last Admin: 07/12/20 22:14 Dose: Not Given Documented by: Insulin Human Isoph/Insulin Regular (Novolin 70-30) 15 unit SUBCUT ONETIME ONE Stop: 07/12/20 21:12 Last Admin: 07/12/20 21:39 Dose: 15 units Documented by: Insulin Human Regular (Novolin R) 20 unit SUBCUT ONETIME ONE; Protocol Stop: 07/12/20 18:44 Last Admin: 07/12/20 19:37 Dose: 20 units Documented by: Insulin Human Regular (Novolin R) 20 unit SUBCUT ONETIME ONE; Protocol Stop: 07/12/20 23:41 Last Admin: 07/13/20 00:00 Dose: 20 units Documented by: Insulin Human Regular (Novolin R) 10 unit SUBCUT ONETIME ONE; Protocol Stop: 07/13/20 03:15 Last Admin: 07/13/20 03:49 Dose: 10 units Documented by: Ondansetron HCl (Zofran) 4 mg IVPUSH Q4H PRN PRN Reason: Nausea Pyridostigmine ([place] 60 Mg) 1 each PO DAILY [facility] Last Admin: 07/12/20 11:30 Dose: Not Given Documented by: Warfarin Sodium (Coumadin) 5 mg PO ONETIME ONE Stop: 07/11/20 18:01 Last Admin: 07/11/20 18:13 Dose: 5 mg Documented by: Warfarin Sodium (Coumadin) 2.5 mg PO DAILY@1400 ONE Stop: 07/12/20 14:01 Last Admin: 07/12/20 14:59 Dose: 2.5 mg Documented by: <Lucinda Curtis - Last Filed: 07/21/20 17:48> Discharge Summary - Hospital Course Free Text/Narrative:: I have seen and evaluated the patient and agree with the residents note unless specified in my note - Referral to Home Health Primary Care Physician: [facility] - Patient Summary/Data Consults: Consultations 07/12/20 11:03 Consult to Physical Therapy [PT Evaluation and Treatment] [CONS] Routine - Patient Data Vitals - Most Recent: Last Vital Signs Temp 35.6 C L 07/13/20 13:00 Pulse 80 07/13/20 13:00 Resp 18 07/13/20 13:00 BP 116/59 L 07/13/20 13:00 Pulse Ox 94 L 07/13/20 13:00 Med Orders - Current: Current Medications Discontinued Medications Acetaminophen (Tylenol) 650 mg PO Q4H PRN PRN Reason: Pain (Mild 1-3)/fever Albuterol/Ipratropium (Combivent Respimat) 0 gm INH Q6H [facility] Last Admin: 07/13/20 11:51 Dose: 1 puff Documented by: Dexamethasone (Dexamethasone) Confirm Administered Dose 8 mg .ROUTE .STK-MED ONE Stop: 07/11/20 12:39 Last Admin: 07/11/20 12:49 Dose: Not Given Documented by: Dexamethasone (Dexamethasone) 6 mg PO ONETIME ONE Stop: 07/11/20 12:44 Last Admin: 07/11/20 12:44 Dose: 6 mg Documented by: Dexamethasone (Dexamethasone) 6 mg PO DAILY [facility] Last Admin: 07/13/20 09:06 Dose: 6 mg Documented by: Dextrose/Water (Dextrose 50% In Water) 50 ml IV ASDIRECTED PRN PRN Reason: Hypoglycemia Enoxaparin Sodium (Lovenox) 40 mg SUBCUT Q24H [facility] Last Admin: 07/12/20 16:24 Dose: 40 mg Documented by: Ferrous Sulfate (Ferrous Sulfate) 325 mg PO DAILY [facility] Last Admin: 07/13/20 09:07 Dose: 325 mg Documented by: Fludrocortisone Acetate (Florinef) 0.1 mg PO DAILY [facility] Last Admin: 07/13/20 09:06 Dose: 0.1 mg Documented by: Glucagon (Glucagen) 1 mg IM ASDIRECTED PRN PRN Reason: Hypoglycemia Glucagon (Glucagen) 1 mg IM ASDIRECTED PRN PRN Reason: Hypoglycemia Sodium Chloride (Normal Saline) 1,000 mls @ 999 mls/hr IV .Bolus ONE Stop: 07/11/20 12:36 Last Admin: 07/11/20 12:42 Dose: 999 mls/hr Documented by: Remdesivir 200 mg/ Sodium (Chloride) 250 mls @ 250 mls/hr IV ONETIME ONE Stop: 07/11/20 12:25 Last Admin: 07/11/20 14:28 Dose: 250 mls/hr Documented by: Remdesivir 200 mg/ Sodium (Chloride) 250 mls @ 250 mls/hr IV ONETIME ONE Stop: 07/11/20 13:59 Last Admin: 07/11/20 16:50 Dose: Not Given Documented by: Remdesivir 100 mg/ Sodium (Chloride) 100 mls @ 100 mls/hr IV Q24H [facility] Stop: 07/15/20 14:59 Last Admin: 07/13/20 14:38 Dose: Not Given Documented by: Pantoprazole Sodium 40 mg/ (Sodium Chloride) 10 mls @ 300 mls/hr IV DAILY [facility] Last Admin: 07/13/20 09:08 Dose: 300 mls/hr Documented by: Insulin Aspart (Novolog) 0 unit SUBCUT TIDAC [facility]; Protocol Last Admin: 07/12/20 15:25 Dose: 15 unit Documented by: Insulin Aspart (Novolog) 0 unit SUBCUT TIDAC [facility]; Protocol Last Admin: 07/13/20 13:22 Dose: Not Given Documented by: Insulin Aspart (Novolog) 5 unit SUBCUT TIDAC [facility] Last Admin: 07/13/20 13:22 Dose: Not Given Documented by: Insulin Glargine (Lantus Solostar) 50 units SUBCUT ACBREAKFAST [facility] Last Admin: 07/13/20 09:14 Dose: 50 units Documented by: Insulin Glargine (Lantus Solostar) 25 units SUBCUT NOW STA Stop: 07/12/20 23:37 Last Admin: 07/12/20 23:52 Dose: 25 units Documented by: Insulin Human Isoph/Insulin Regular (Novolin 70-30) Confirm Administered Dose 1,000 unit SUBCUT .STK-MED ONE Stop: 07/12/20 19:25 Last Admin: 07/12/20 22:14 Dose: Not Given Documented by: Insulin Human Isoph/Insulin Regular (Novolin 70-30) 15 unit SUBCUT ONETIME ONE Stop: 07/12/20 21:12 Last Admin: 07/12/20 21:39 Dose: 15 units Documented by: Insulin Human Regular (Novolin R) 20 unit SUBCUT ONETIME ONE; Protocol Stop: 07/12/20 18:44 Last Admin: 07/12/20 19:37 Dose: 20 units Documented by: Insulin Human Regular (Novolin R) 20 unit SUBCUT ONETIME ONE; Protocol Stop: 07/12/20 23:41 Last Admin: 07/13/20 00:00 Dose: 20 units Documented by: Insulin Human Regular (Novolin R) 10 unit SUBCUT ONETIME ONE; Protocol Stop: 07/13/20 03:15 Last Admin: 07/13/20 03:49 Dose: 10 units Documented by: Montelukast Sodium (Singulair) 10 mg PO BEDTIME [facility] Last Admin: 07/12/20 20:55 Dose: 10 mg Documented by: Ondansetron HCl (Zofran) 4 mg IVPUSH Q4H PRN PRN Reason: Nausea Duloxetine Hcl 20 Mg 1 each PO TID [facility] Last Admin: 07/13/20 14:37 Dose: 1 each Documented by: Pyridostigmine ([place] 60 Mg) 1 each PO DAILY [facility] Last Admin: 07/12/20 11:30 Dose: Not Given Documented by: Tiotropium [Spiriva Respimat] 2.5 Mcg/Actuation 2 each INH DAILY [facility] Last Admin: 07/13/20 13:22 Dose: Not Given Documented by: Pyridostigmine ([place] 60 Mg) 2 each PO QID [facility] Last Admin: 07/13/20 14:37 Dose: 2 each Documented by: Pregabalin (Lyrica) 50 mg PO BID [facility] Last Admin: 07/13/20 09:08 Dose: 50 mg Documented by: Fluticasone/Salmeterol (Advair Diskus 250-50) 0 puff INH Q12H [facility] Last Admin: 07/13/20 06:07 Dose: 1 puff Documented by: Sodium Chloride (Saline Flush) 10 ml FLUSH ASDIRECTED PRN PRN Reason: Keep Vein Open Last Admin: 07/11/20 12:42 Dose: 10 ml Documented by: Sodium Chloride (Saline Flush) 2.5 ml FLUSH ASDIRECTED PRN PRN Reason: Keep Vein Open Last Admin: 07/11/20 12:42 Dose: 2.5 ml Documented by: Tamsulosin HCl (Flomax) 0.4 mg PO DAILY [facility] Last Admin: 07/13/20 09:07 Dose: 0.4 mg Documented by: Warfarin Sodium (Coumadin Ask) 1 each PO DAILY@1400 [facility] Last Admin: 07/13/20 14:39 Dose: Not Given Documented by: Warfarin Sodium (Coumadin) 5 mg PO ONETIME ONE Stop: 07/11/20 18:01 Last Admin: 07/11/20 18:13 Dose: 5 mg Documented by: Warfarin Sodium (Coumadin) 2.5 mg PO DAILY@1400 ONE Stop: 07/12/20 14:01 Last Admin: 07/12/20 14:59 Dose: 2.5 mg Documented by:
[2020-07-13] MEDS: TIOTROPIUM INH SCH (13:22)
[2020-07-13] MEDS: REMDESIVIR 100 MG in Sodium Chloride 0.9% 100 ML IV SCH (14:38)
== END 2020-07-13 16:23 | disposition home or self-care (01) | DRG 177 ==
LOC: MW.ED 10:56 → MW.MS 12:25
PROVIDERS: ADMIT Internal Medicine; ATTEND Internal Medicine
PROC: XW033E5 Introduction of Remdesivir Anti-infective into Peripheral Vein, Percutaneous Approach, New Technology Group 5 (ICD-10-PCS; principal; 2020-07-11)
DX: U07.1 COVID-19 (principal); R09.02 Hypoxemia; Z88.8 Allergy status to other drugs, medicaments and biological substances; Z88.2 Allergy status to sulfonamides; J96.01 Acute respiratory failure with hypoxia; Z79.899 Other long term (current) drug therapy; J12.9 Viral pneumonia, unspecified; I48.91 Unspecified atrial fibrillation; E11.9 Type 2 diabetes mellitus without complications; G70.00 Myasthenia gravis without (acute) exacerbation; J44.9 Chronic obstructive pulmonary disease, unspecified; N40.0 Benign prostatic hyperplasia without lower urinary tract symptoms; F32.9 Major depressive disorder, single episode, unspecified; Z99.81 Dependence on supplemental oxygen; Z79.51 Long term (current) use of inhaled steroids; Z79.01 Long term (current) use of anticoagulants; Z95.4 Presence of other heart-valve replacement
CPT/HCPCS: 36415; 71045; 71045-26; 80053; 82962; 83036; 83735; 83880; 84100; 84484; 85025; 85610; 85730; 93005; 93010; 94640; 94664; 97161-GP; 99222; 99232; 99238; 99284; 99285-25; A9270-GY; C9113; J1650; J1815-GY; J7030; J7050; J8540

== ENCOUNTER 2021-03-03 14:38 | Emergency (ER) | payer MEDICARE, OTHER ==
[2021-03-03] MEDS ORDERED: Sodium Chloride 0.9% 2.5 ML Syringe FLUSH PRN (14:46)
[2021-03-03] MEDS ORDERED: Sodium Chloride 0.9% 10 ML Syringe FLUSH PRN (14:46)
[2021-03-03 15:27] LABS: BLOOD UREA NITROGEN,BUN 17 mg/dL (7.0-18.0); CARBON DIOXIDE,CO2 31.1 mmol/L (21.0-32.0); CHLORIDE,CL 100 mmol/L (98-107); GLUCOSE RANDOM 197 mg/dL (74-106); POTASSIUM,K 2.6 mmol/L (3.5-5.1); SODIUM,NA 141 mmol/L (136-148)
--- NOTE | 2021-03-03 15:43 | CT ---
For Patients: As a result of the Century Cures Act, medical imaging exams and procedure reports are released immediately into your electronic medical record. You may view this report before your referring provider. If you have questions, please contact your health care provider. INDICATION: Fell yesterday on blood thinners. COMPARISON: MRI brain 09/25/2020. TECHNIQUE: CT of the head without IV contrast. Coronal and sagittal reconstructions are provided. FINDINGS: There is acute hyperdense subdural hematoma overlying the right cerebral hemisphere and along the right aspect of the interhemispheric fissure and right tentorium. This measures up to 8 mm in greatest radial diameter along the right cerebral convexity, 9 mm in diameter along the interhemispheric fissure, and 10 mm in diameter along the right tentorium (series 203 images 54, 53, 59). There is mass effect with effacement of sulci and 7 mm [id number] midline shift at the level of the septum pellucidum. Mild effacement of the right lateral ventricle. No evidence of acute infarct. Moderate generalized cerebral and cerebellar volume loss. Advanced chronic small vessel ischemic disease. 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 Orbits and extraocular muscles are symmetric. Mild mucosal thickening in the right maxillary sinus. The paranasal sinuses and mastoid air cells are otherwise clear. No acute fracture. Soft tissues are unremarkable. IMPRESSION: : 1. Acute hyperdense subdural hematoma overlying the right cerebral hemisphere and along the right aspect of the interhemispheric fissure and right tentorium measuring up to 10 mm in diameter. 2. Associated mass effect with effacement of sulci, effacement of the right lateral ventricle, and 7 mm right to left midline shift. 3. Advanced chronic small vessel ischemic disease. 4. Findings discussed with Jase Winston at 3:41pm on 03/03/2021. Please note that all CT scans at this facility use dose modulation, iterative reconstruction, and/or weight-based dosing when appropriate to reduce radiation dose to as low as reasonably achievable. Dictated by Tara Wells MD @ 03/03/2021 3:36:33 PM (Electronically Signed)
--- NOTE | 2021-03-03 15:47 | CT ---
Indication: Fell yesterday on blood thinners. Technique: CT of the cervical spine without IV contrast. Coronal and sagittal reconstructions. Comparison: None. Findings: No acute fracture or traumatic malalignment of the cervical spine. Vertebral body heights are well maintained. Normal vertebral body alignment. No significant disc space narrowing. No significant neural foraminal narrowing or spinal canal stenosis. No prevertebral soft tissue swelling. Visualized intracranial contents demonstrate an acute hyperdense subdural hematoma along the right tentorium which will be discussed in a separate report. The mastoid air cells are clear. Mild mucosal thickening in the right maxillary sinus. The thyroid gland is normal in appearance. The lung apices are clear. Impression: No acute fracture or traumatic malalignment of the cervical spine. Please note that all CT scans at this facility use dose modulation, iterative reconstruction, and/or weight-based dosing when appropriate to reduce radiation dose to as low as reasonably achievable. Dictated by Tara Wells MD @ 03/03/2021 3:45:[address] Tara Wells @ Mar 03 2021 3:45PM
[2021-03-03] MEDS ORDERED: Factor IX Complex Human 500 UNIT VIAL IVPUSH STA (15:59)
--- NOTE | 2021-03-03 16:03 | EDM.PDOC ---
ED HPI GENERAL MEDICAL PROBLEM - General Chief Complaint: Trauma Stated Complaint: FELL Time Seen by Provider: 03/03/21 14:45 - History of Present Illness INITIAL COMMENTS - FREE TEXT/NARRATIVE: HISTORY AND PHYSICAL: History of present illness: This is a 75-year-old gentleman with a history significant for diabetes, diabetes, COPD, hyperlipidemia, GERD, history of mechanical aortic valve replacement in [place], history of atrial fibrillation, history of myasthenia gravis, history of multiple sclerosis, who presents to the ER today secondary to multiple falls over the last couple days. Patient is on chronic anticoagulation therapy secondary to his atrial fibrillation and mechanical valve. Patient went to the [facility] today secondary to his fall and was transferred here secondary to a markedly elevated INR of 7.0 noted at the [facility]. Upon arrival to the ED, the patient does complain of a headache but no discomfort in his neck. Patient is complaining of pain to his left shoulder as well and reports difficulty moving his arm secondary to an a fall on his left shoulder and he believes he might have a rotator cuff injury. Patient reports that he is able to move his elbow wrist and fingers without difficulty. Patient denies any pain or discomfort to his pelvis or lower extremities. Patient reports that he has had multiple falls over the last week and reports that he has never had any loss of consciousness with the fall. Patient reports that he feels generalized weakness and dizziness resulting in the fall. Patient denies any recent fevers, shakes, chills, nausea, vomiting, diarrhea, dysuria, frequency, urgency, chest pain, shortness of breath, abdominal pain or discomfort. Patient denies any pain to his pelvis. Patient does complain of a headache greatest on the bitemporal regions. Patient reports that when he fell yesterday he hit the back of his head but has no pain at the area of impact. Review of systems: As per history of present illness and below otherwise all systems reviewed and negative. Past medical history: As per history of present illness and as reviewed below otherwise noncontributory. Surgical history: As per history of present illness and as reviewed below otherwise no ncontributory. Social history: No reported history of drug abuse. Family history: As per history of present illness and as reviewed below otherwise noncontributory. Physical exam: This patient was seen and evaluated during the 2019 SARS-CoV-2 novel coronavirus pandemic period. Community viral transmission is ongoing at time of this encounter and the emergency department is operating under pandemic response procedures. Constitutional: Patient is oriented to person, place, and time. Appears well- developed and well-nourished. No distress. HEENT: Moist mucous membranes Head: Normocephalic and atraumatic Eyes: Right eye exhibits no discharge. Left eye exhibits no discharge. No scleral icterus Neck: Normal range of motion. No tracheal deviation present. Cardiovascular: Normal rate and regular rhythm. Pulmonary: Effort normal, no respiratory distress. Abdominal: No distention Musculoskeletal: Normal range of motion Neurologic: Alert and oriented to person, place and time. Skin: [place], warm and dry. Psychiatric: Normal mood and affect. Behavior is normal. Judgment and thought content normal. Nursing note and vital signs have been reviewed Patient has no C-spine T-spine or L-spine tenderness to palpation. Patient has no left upper or right upper quadrant tenderness to palpation. Patient has no crepitus to palpation to the anterior chest wall. Patient is neurologically intact. Patient does not present with any signs or or symptoms that would be consistent with acute intracranial, intra-abdominal, intrathoracic, or long bone injury. All long bones have been palpated and range of motion been performed and there is no evidence of any acute pathology. Patient is alert awake and orient x3. Patient is somewhat somnolent but easily arousable. Patient pupils are equally round and reactive to light. Extraocular motions are intact. Patient does not have any visual field deficits. Patient does have discomfort to palpation to his left shoulder with some ecchymosis noted to that area. Patient has diminished range of motion to his shoulder but full range of motion to his left elbow wrist and fingers. Diagnostics: CT of head: Acute hyperdense subdural hematoma overlying the right cerebral hemisphere and along the right aspect of the interhemispheric fissure and right tentorium. This measures up to 8 mm in greatest radial diameter along the right cerebral convexity. 9 mm in diameter along the interhemispheric fissure and 10 mm in diameter along the right tentorium. There is mass-effect with effacement of sulci and 7 mm right to left midline shift at the level of the septum pellucidum. Mild effacement of the right lateral ventricles. No evidence of acute infarct. Moderate generalized cerebral and cerebellar volume loss. Advanced chronic small vessel ischemic disease. CT of cervical spine: No significant fracture or pathology identified. Chest Xray: Normal cardiac silhouette No infiltrates or effusions identified. No PTX No evidence of acute bony fracture. As interpreted by ER MD: Tish Left shoulder: No acute fracture dislocation. Positive DJD. Therapeutics: K Centra 5000 units IV given. FFP one half mag IV given prior to discontinuation and initiation of the Kcentra. Assessment and plan: This is a 75-year-old gentleman with multiple medical problems and comorbidities who is on chronic anticoagulation therapy for atrial fibrillation and aortic valve replacement who presents to the ER today with Coumadin toxicity with an INR of 7 as well as recent head injury and trauma. Patient reports that he had fallen yesterday at approximately 8 PM with no loss of consciousness but did feel dizzy prior to falling. Patient CT scan of his head reveals significant subdural hematoma with effacement of the sulci as well as a 7 mm right to left midline shift. Case has been discussed with Dr. Lemon at [facility] who is agreed to accept patient for transfer for trauma evaluation. We have discussed the case also with Dr. Del Real who agrees with holding off on giving mannitol at this time and has recommended initiating Kcentra and to discontinue the FFP. Patient has been reevaluated by me multiple times while here in the ED. Patient's blood pressures remained stable. Patient is alert awake oriented x3. Patient's airway has remained stable and there is no indication at this time for intubation for airway protection. Patient is aware of the need for transfer and aware of his current diagnosis. He is agreeable to the current plan of care to transfer to [facility] for trauma evaluation. Patient's c-collar has been discontinued as he has a negative CT scan of the cervical spine, no C-spine tenderness, and the patient is morbidly obese and having extremely difficult time with laying flat and breathing with a c-collar in place. Patient does not exhibit any signs or symptoms of be concerning for evidence of cord injury, cord syndrome or contusion. Critical Care: The high probability of sudden, clinically significant deterioration in the patient's condition required the highest level of my preparedness to intervene urgently. The services I provided to this patient were to treat and/or prevent clinically significant deterioration. Services included the following: chart data review, reviewing nursing notes and/or old charts, documentation time, customer consultant collaboration regarding findings and treatment options, medication orders and management, direct patient care, vital sign assessments and ordering, interpreting and reviewing diagnostic studies/lab tests. Aggregate critical care time includes only time during which I was engaged inwork directly related to the patient's care, as described above, whether at the bedside or elsewhere in the Emergency Department. It did not inc lude time spent performing other reported procedures or the services of residents, students, nurses or physician assistants. Critical Care Time: 35 minutes Definitive disposition and diagnosis as appropriate pending reevaluation and review of above. left shoulder Pain Score (Numeric/FACES): 8 - Related Data Allergies Allergy/AdvReac Type Severity Reaction Status Date / Time metformin Allergy Cannot Verified 07/11/20 11:06 Remember Sulfa (Sulfonamide Allergy Cannot Verified 07/11/20 11:06 Antibiotics) Remember Home Meds: Home Meds Albuterol Sulfate [Proair Respiclick] 90 mcg INH ASDIRECTED 07/08/20 [History] DULoxetine HCl [Duloxetine HCl] 20 mg PO TID 07/08/20 [History] Ferrous Sulfate 325 mg PO DAILY 07/08/20 [History] Fludrocortisone Acetate 0.1 mg PO DAILY 07/08/20 [History] Fluticasone Propion/Salmeterol [Fluticasone-Salmeterol 250-50] 1 puff INH Q12H 07/08/20 [History] Insulin Aspart [Insulin Aspart Flexpen] 8 units INJECT BID 07/08/20 [History] Montelukast [Singulair] 10 mg PO BEDTIME 07/08/20 [History] Pantoprazole [ProTONIX] 40 mg PO DAILY 07/08/20 [History] Pregabalin [Lyrica] 50 mg PO BID 07/08/20 [History] Pyridostigmine [place] 120 mg PO Q6HR 07/08/20 [History] Tamsulosin HCl [Flomax] 0.4 mg PO DAILY 07/08/20 [History] Tiotropium [Spiriva HandiHaler] 2.5 mcg INH DAILY 07/08/20 [History] Warfarin [Coumadin] 2.5 mg PO DAILY 07/08/20 [History] predniSONE [Prednisone] 20 mg PO DAILY 07/08/20 [History] Insulin Glarg,Human.Rec.Analog [Lantus Solostar] 60 units INJECT ACBREAKFAST #0 07/13/20 [Rx] Albuterol Sulfate [Proair Hfa] 2 inh IH Q6H PRN 03/03/21 [History] azaTHIOprine [Azathioprine] 50 mg PO DAILY 03/03/21 [History] Past Medical History Cardiovascular History: Reports: Afib, Heart Valve Replacement Respiratory History: Reports: COPD Genitourinary History: Reports: BPH Musculoskeletal History: Reports: None Neurological History: Reports: MS Endocrine/Metabolic History: Reports: Diabetes, Type II, Obesity/BMI 30+ - Infectious Disease History Infectious Disease History: Reports: Novel Coronavirus - Past Surgical History Other HEENT Surgeries/Procedures: unable to obtain Other Cardiovascular Surgeries/Procedures: unable to obtain Other Respiratory Surgeries/Procedures: unable to obtain Other GI Surgeries/Procedures: unable to obtain Other Male Surgeries/Procedures: unable to obtain Other Endocrine Surgeries/Procedures: unable to obtain Other Neurological Surgeries/Procedures: Unable to obtain Other Musculoskeletal Surgeries/Procedures:: unable to obtain Social & Family History - Caffeine Use Caffeine Use: Reports: None - Recreational Drug Use Recreational Drug Use: No Review of Systems - Review of Systems Review Of Systems: See Below ED EXAM, GENERAL - Physical Exam Exam: See Below #1 Interpretation EKG Interpretation Comments: EKG: As interpreted by ER physician: Tish: Nonspecific ST-T wave abnormalities Normal axis No evidence of ST elevation ME Atrial flutter with a heart rate of 67 and 41 AV block Course - Vital Signs Last Recorded V/S: Last Vital Signs Temp 98 F 03/03/21 14:57 Pulse 66 03/03/21 14:57 Resp 14 03/03/21 14:57 BP 174/93 H 03/03/21 14:57 Pulse Ox 98 03/03/21 14:57 - Orders/Labs/Meds Orders: Active Orders 24 hr Category Date Time Status EKG Documentation Completion [RC] AM Care 03/03/21 14:46 Active Verify Patient Consent Obtain [RC] ASDIRECTED Care 03/03/21 15:14 Active Chest 1V Frontal [CR] Stat Exams 03/03/21 14:47 Taken Shoulder Comp Lt [CR] Stat Exams 03/03/21 14:48 Taken ABO/RH TYPE [BBK] Stat Lab 03/03/21 15:19 Results FRESH FROZEN PLASMA [BBK] Stat Lab 06/30/21 15:19 Results UA W/JESUS RFLX IF INDICATED [URIN] Stat Lab 03/03/21 14:46 Ordered Sodium Chloride 0.9% [Saline Flush] Med 03/03/21 14:46 Active 10 ml FLUSH ASDIRECTED PRN Sodium Chloride 0.9% [Saline Flush] Med 03/03/21 14:46 Active 2.5 ml FLUSH ASDIRECTED PRN Saline Lock Insert [OM.PC] Stat Oth 03/03/21 14:46 Ordered Transfuse Fresh Frozen Plasma [COMM] Stat Oth 03/03/21 15:14 Ordered Medication Orders Sodium Chloride (Sodium Chloride 0.9% 10 Ml Syringe) 10 ml FLUSH ASDIRECTED PRN PRN Reason: Keep Vein Open Sodium Chloride (Sodium Chloride 0.9% 2.5 Ml Syringe) 2.5 ml FLUSH ASDIRECTED PRN PRN Reason: Keep Vein Open Labs: Laboratory Tests 03/03/21 03/03/21 03/03/21 Range/Units 14:45 14:45 14:45 WBC 11.13 H (4.0-11.0) K/uL RBC 4.60 (4.50-5.90) M/uL Hgb 13.6 (13.0-17.0) g/dL Hct 41.9 (38.0-50.0) % MCV 91.1 (80.0-98.0) fL MCH 29.6 (27.0-32.0) pg MCHC 32.5 (31.0-37.0) g/dL RDW Std Deviation 45.1 (28.0-62.0) fl RDW Coeff of [place] 14 (11.0-15.0) % Plt Count 223 (150-400) K/uL MPV 10.50 (7.40-12.00) fL Neut % (Auto) 70.7 (48.0-80.0) % Lymph % (Auto) 17.3 (16.0-40.0) % [place] % (Auto) 6.4 (0.0-15.0) % Eos % (Auto) 5.1 (0.0-7.0) % Baso % (Auto) 0.5 (0.0-1.5) % Neut # (Auto) 7.9 H (1.4-5.7) K/uL Lymph # (Auto) 1.9 (0.6-2.4) K/uL [place] # (Auto) 0.7 (0.0-0.8) K/uL Eos # (Auto) 0.6 (0.0-0.7) K/uL Baso # (Auto) 0.1 (0.0-0.1) K/uL Nucleated RBC % 0.0 /100WBC Nucleated RBCs # 0 K/uL INR 6.90 APTT (18.6-31.3) SEC Sodium 141 (136-148) mmol/L Potassium 2.6 L (3.5-5.1) mmol/L Chloride 100 (98-107) mmol/L Carbon Dioxide 31.1 (21.0-32.0) mmol/L BUN 17 (7.0-18.0) mg/dL Creatinine 1.3 (0.8-1.3) mg/dL Est Cr Clr Drug Dosing TNP Estimated GFR (MDRD) 54.0 ml/min Glucose 197 H (74-106) mg/dL Calcium 8.3 L (8.5-10.1) mg/dL Total Bilirubin 0.9 (0.2-1.0) mg/dL AST 15 (15-37) IU/L ALT 20 (14-63) IU/L Alkaline Phosphatase 97 (46-116) U/L Troponin I < 0.050 (0.000-0.056) ng/mL Total Protein 6.2 L (6.4-8.2) g/dL Albumin 2.8 L (3.4-5.0) g/dL Globulin 3.4 (2.6-4.0) g/dL Albumin/Globulin Ratio 0.8 L (0.9-1.6) Blood Type 03/03/21 03/03/21 Range/Units 14:45 15:19 WBC (4.0-11.0) K/uL RBC (4.50-5.90) M/uL Hgb (13.0-17.0) g/dL Hct (38.0-50.0) % MCV (80.0-98.0) fL MCH (27.0-32.0) pg MCHC (31.0-37.0) g/dL RDW Std Deviation (28.0-62.0) fl RDW Coeff of [place] (11.0-15.0) % Plt Count (150-400) K/uL MPV (7.40-12.00) fL Neut % (Auto) (48.0-80.0) % Lymph % (Auto) (16.0-40.0) % [place] % (Auto) (0.0-15.0) % Eos % (Auto) (0.0-7.0) % Baso % (Auto) (0.0-1.5) % Neut # (Auto) (1.4-5.7) K/uL Lymph # (Auto) (0.6-2.4) K/uL [place] # (Auto) (0.0-0.8) K/uL Eos # (Auto) (0.0-0.7) K/uL Baso # (Auto) (0.0-0.1) K/uL Nucleated RBC % /100WBC Nucleated RBCs # K/uL INR APTT 62.5 H (18.6-31.3) SEC Sodium (136-148) mmol/L Potassium (3.5-5.1) mmol/L Chloride (98-107) mmol/L Carbon Dioxide (21.0-32.0) mmol/L BUN (7.0-18.0) mg/dL Creatinine (0.8-1.3) mg/dL Est Cr Clr Drug Dosing Estimated GFR (MDRD) ml/min Glucose (74-106) mg/dL Calcium (8.5-10.1) mg/dL Total Bilirubin (0.2-1.0) mg/dL AST (15-37) IU/L ALT (14-63) IU/L Alkaline Phosphatase (46-116) U/L Troponin I (0.000-0.056) ng/mL Total Protein (6.4-8.2) g/dL Albumin (3.4-5.0) g/dL Globulin (2.6-4.0) g/dL Albumin/Globulin Ratio (0.9-1.6) Blood Type O POSITIVE Meds: Medications Generic Name Dose Route Start Last Admin Trade Name Freq PRN Reason Stop Dose Admin Sodium Chloride 10 ml 03/03/21 14:46 Sodium Chloride 0.9% 10 Ml Syringe FLUSH ASDIRECTED PRN Keep Vein Open Sodium Chloride 2.5 ml 03/03/21 14:46 Sodium Chloride 0.9% 2.5 Ml Syringe FLUSH ASDIRECTED PRN Keep Vein Open Departure - Departure Time of Disposition: 16:21 Disposition: DC/Tfer to Acute Hospital 02 Condition: Fair, Critical Clinical Impression: Subdural hematoma, Midline shift of brain due to hematoma, Altered mental status, Subdural hemorrhage, Fall in elderly patient, Coumadin toxicity - Discharge Information Referrals: PCP,None [Primary Care Provider] - Sepsis Event Note (ED) - Evaluation Sepsis Screening Result: No Definite Risk - Focused Exam Vital Signs: Vital Signs Temp Pulse Resp BP Pulse Ox 03/03/21 14:57 98 F 66 14 174/93 H 98 - My Orders Last 24 Hours: My Active Orders 03/03/21 14:46 EKG Documentation Completion [RC] AM UA W/JESUS RFLX IF INDICATED [URIN] Stat Sodium Chloride 0.9% [Saline Flush] 10 ml FLUSH ASDIRECTED PRN Sodium Chloride 0.9% [Saline Flush] 2.5 ml FLUSH ASDIRECTED PRN Saline Lock Insert [OM.PC] Stat 03/03/21 14:47 Chest 1V Frontal [CR] Stat 03/03/21 14:48 Shoulder Comp Lt [CR] Stat - Assessment/Plan Last 24 Hours: My Active Orders 03/03/21 14:46 EKG Documentation Completion [RC] AM UA W/JESUS RFLX IF INDICATED [URIN] Stat Sodium Chloride 0.9% [Saline Flush] 10 ml FLUSH ASDIRECTED PRN Sodium Chloride 0.9% [Saline Flush] 2.5 ml FLUSH ASDIRECTED PRN Saline Lock Insert [OM.PC] Stat 03/03/21 14:47 Chest 1V Frontal [CR] Stat 03/03/21 14:48 Shoulder Comp Lt [CR] Stat
--- NOTE | 2021-03-03 16:14 | CR ---
INDICATION: Trauma TECHNIQUE: Two views left shoulder COMPARISON: None FINDINGS: Bones: Alignment is normal. No fractures. Benign sclerotic focus involving the metaphyseal region of the proximal left humerus. Joint spaces: Unremarkable. Soft tissues: Unremarkable. IMPRESSION: No evidence of acute trauma. Dictated by Jourdan Snyder MD @ 03/03/2021 4:13:[address] Jourdan Snyder @ Mar 03 2021 4:13PM
--- NOTE | 2021-03-03 16:19 | CR ---
INDICATION: Dizziness TECHNIQUE: Chest 1 view. COMPARISON: 07/11/2020 FINDINGS: Cardiovascular and mediastinum: Megaly. Mediastinum is within normal limits. Lungs and pleural space: Lungs are clear. No sign of infiltrate or mass. No sign of pleural effusion. No pneumothorax. Bones and soft tissues: No significant findings. IMPRESSION: No acute findings. Cardiomegaly. Dictated by Jourdan Snyder MD @ 03/03/2021 4:17:[address] Jourdan Snyder @ Mar 03 2021 4:17PM
== END 2021-03-03 16:20 ==
LOC: MW.ED 14:38
DX: S06.5X0A Traumatic subdural hemorrhage without loss of consciousness, initial encounter (principal); T45.511A Poisoning by anticoagulants, accidental (unintentional), initial encounter; I48.91 Unspecified atrial fibrillation; J44.9 Chronic obstructive pulmonary disease, unspecified; E11.9 Type 2 diabetes mellitus without complications; E66.9 Obesity, unspecified; Z68.30 Body mass index [BMI] 30.0-30.9, adult; Z79.01 Long term (current) use of anticoagulants; Z88.2 Allergy status to sulfonamides; Z88.8 Allergy status to other drugs, medicaments and biological substances; Z79.4 Long term (current) use of insulin; Z79.899 Other long term (current) drug therapy; W18.39XA Other fall on same level, initial encounter
CPT/HCPCS: 36415; 70450; 71045; 72125; 73030; 80053; 84484; 85025; 85610; 85730; 93005; 96374; 99285; C9132; P9017